=== PATIENT | male | born 1950 | race Caucasian/White ===

== ENCOUNTER → 2016-12-27 | Outpatient (CLI) | payer MEDICAID | END | disposition home or self-care (01) | LOC: LABWHC1 13:03 | PROVIDERS: ATTEND Internal Medicine Endocrinology, Diabetes & Metabolism | DX: E03.9 Hypothyroidism, unspecified (principal) | CPT/HCPCS: 36415; 84439; 84443 ==

== ENCOUNTER → 2017-02-13 | Outpatient (CLI) | payer MEDICAID ==
--- NOTE | 2017-02-13 22:01 | PN ---
DATE OF SERVICE: 02/13/2017 A 56-year-old gentleman who has been followed in the sleep center for treatment of obstructive sleep apnea/hypopnea syndrome. Patient recently received his new CPAP unit and he brought his CPAP unit ( ). He is able to use equipment every night for the whole night without any problems. He feels he sleeps well and he feels well during the day. [place] Sleepiness Scale is 6. I checked his CPAP unit. CPAP pressure is 12 ( ) automatic regimen. Patient using equipment 100% of the time for more than 4 hours. A leak is 4 L/min, which is good range. Apnea-hypopnea index reading from the machine for last month is 2.7, for last night is 1.1. Subsequently, no significant respiratory abnormalities with CPAP. MEDICATIONS: 1. Zetia. 2. Synthroid. 3. Metoprolol. 4. Altace. 5. Xarelto. 6. Lasix. PHYSICAL EXAMINATION: GENERAL: A pleasant patient without any distress. VITAL SIGNS: BP 112/75, HR 87, RR 16. Weight 273.4. Possibly during the previous visit, the patient's weight was done wt more clothes than today. Otherwise, possibly the patient increased his weight 8 pounds. Temperature 97.7, oxygen saturation at room air 95%. HEENT: PERRLA, EOMI. Evaluation of oropharynx showed tongue protrudes midline, low position of soft palate. Neck: Supple. No JVD. Thyroid is not palpable. LUNGS: Clear to percussion and to auscultation. Good air exchange. No wheezing or rhonchi. HEART: S1, S2 regular. No murmurs, gallops, or rubs. ABDOMEN: Obese, soft and nontender. Bowel sounds are present. No organomegaly appreciated. EXTREMITIES: No clubbing or cyanosis. Minimal swelling of the ankles. CELL ATTENDANT HELPER: Awake, alert, and oriented x3. Cranial nerves 2 to 7 intact. There is no fasciculation or atrophy noted. No focal deficits observed. IMPRESSION: 1. Obstructive sleep apnea/hypopnea syndrome on full control with CPAP at 12 cm of water. Patient demonstrated 100% compliance with treatment and is benefiting from treatment. 2. Obesity. 3. History of atrial fibrillation. 4. Swelling of the legs. 5. Hypothyroidism. 6. Hyperlipidemia. 7. Hypertension. 8. History of biliary cirrhosis. PLAN: 1. Continue treatment with CPAP every night for the whole night. 2. Losing weight. 3. Sleep hygiene with regular time in bed for at least 8 hours. 4. No driving if feeling any sleepiness. 5. Prescription for all necessary CPAP supplies, including mask, tube, filters. Thank you very much for allowing me to participate in the management your patient. Sincerely, Chirag Fuentes MD, PhD, FAASM. Diplomat of [place] [employer], Sleep Medicine Board by [place] [employer] [place] [employer] Research Coordinator of [facility] [place]
== END | disposition home or self-care (01) ==
LOC: SLEEP 14:26
PROVIDERS: ATTEND Internal Medicine
DX: G47.33 Obstructive sleep apnea (adult) (pediatric) (principal); E66.9 Obesity, unspecified; E03.9 Hypothyroidism, unspecified; I48.91 Unspecified atrial fibrillation; I10 Essential (primary) hypertension; E78.5 Hyperlipidemia, unspecified; Z99.89 Dependence on other enabling machines and devices; Z79.899 Other long term (current) drug therapy

== ENCOUNTER → 2017-06-18 | Outpatient (CLI) | payer MEDICAID ==
[2017-06-18 14:03] LABS: ALT 60 U/L (21-72); AST 37 U/L (17-59); Alkaline Phosphatase 63 U/L (38-126); Anion Gap 8 mmol/L; Blood Urea Nitrogen 22 mg/dL (9-20); Calcium 8.9 mg/dL (8.4-10.2); Carbon Dioxide 22 mmol/L (22-30); Chloride 109 mmol/L (98-107); Cholesterol 159 mg/dL (<200); Glucose 89 mg/dL (74-99); HDL Cholesterol 39 mg/dL (40-60); Non-African American GFR(MDRD) >60 (>60 ml/min/1.73 sqM); Potassium 4.3 mmol/L (3.5-5.1); Sodium 139 mmol/L (137-145); Total Bilirubin 1.2 mg/dL (0.2-1.3); Total Protein 7.1 g/dL (6.3-8.2)
== END | disposition home or self-care (01) ==
LOC: LABWHC1 13:13
PROVIDERS: ATTEND Internal Medicine Endocrinology, Diabetes & Metabolism
DX: E78.00 Pure hypercholesterolemia, unspecified (principal); E03.9 Hypothyroidism, unspecified; E55.9 Vitamin D deficiency, unspecified; I10 Essential (primary) hypertension
CPT/HCPCS: 36415; 80053; 80061; 82306; 84439; 84443

== ENCOUNTER → 2017-06-26 | Outpatient (CLI) | payer MEDICAID | END | disposition home or self-care (01) | LOC: LABWHC1 12:09 | PROVIDERS: ATTEND Internal Medicine Endocrinology, Diabetes & Metabolism | DX: R61 Generalized hyperhidrosis (principal) | CPT/HCPCS: 36415; 84402; 84403 ==

== ENCOUNTER → 2017-07-26 | Outpatient (CLI) | payer MEDICAID ==
--- NOTE | 2017-07-26 11:28 | ECHOF ---
Referral Reason:I48.91 atrial fibrillation MEASUREMENTS -------- HEIGHT: 170.2 cm WEIGHT: 120.2 kg BP: 125/75 RVIDd: 3.5 cm (< 3.3) IVSd: 1.2 cm (0.6 - 1.1) LVIDd: 4.7 cm (3.9 - 5.3) LVPWd: 1.3 cm (0.6 - 1.1) EDV(Teich): 101 ml IVSs: 1.4 cm LVIDs: 3.9 cm LVPWs: 2.0 cm %IVS Thck: 25 % ESV(Teich): 66 ml EF(Teich): 34 % %FS: 16 % SV(Teich): 34 ml LA Diam: 4.5 cm (2.7 - 3.8) RA Diam: 3.3 cm LALs A4C: 6.5 cm LAAs A4C: 25.0 cm LAESV A-L A4C: 81 ml LAESV MOD A4C: 76 ml LALs A2C: 6.1 cm LAAs A2C: 19.5 cm LAESV A-L A2C: 53 ml LAESV MOD A2C: 53 ml LAESV(A-L): 68 ml LAESV Index (A-L): 29.61 ml/m Ao Diam: 3.3 cm (2.0 - 3.7) AV Cusp: 2.0 cm (1.5 - 2.6) MV EXCURSION: 28.395 mm (> 18.000) MV EF SLOPE: 170 mm/s (70 - 150) EPSS: 0.6 cm MV DecT: 171 ms MV PHT: 33 ms MVA By PHT: 6.6 cm AV Vmax: 0.75 m/s AV maxP.23 mmHg TR Vmax: 2.18 m/s TR maxP.02 mmHg RAP: 5.00 mmHg RVSP: 24.02 mmHg FINDINGS -------- Atrial fibrillation. This was a technically adequate study. The left ventricular size is normal. There is mild concentric left ventricular hypertrophy. Overall left ventricular systolic function is normal with, an EF between 55 - 60 %. The right ventricle is mildly enlarged. LA is midly dilated 29-33ml/m2. The right atrium is normal in size. The aortic valve is trileaflet and appears structurally normal. Mild mitral regurgitation is present. Mild tricuspid regurgitation present. Right ventricular systolic pressure is normal at < 35 mmHg. The aortic root size is normal. Normal inferior vena cava with normal inspiratory collapse consistent with estimated right atrial pressure of 5 mmHg. The pericardium is normal. CONCLUSIONS -------- 1. Atrial fibrillation. 2. Mild mitral regurgitation is present. 3. Mild tricuspid regurgitation present. 4. Right ventricular systolic pressure is normal at < 35 mmHg. 5. The aortic root size is normal. 6. Normal inferior vena cava with normal inspiratory collapse consistent with estimated right atrial pressure of 5 mmHg. 7. The pericardium is normal. 8. This was a technically adequate study. 9. The left ventricular size is normal. 10. There is mild concentric left ventricular hypertrophy. 11. Overall left ventricular systolic function is normal with, an EF between 55 - 60 %. 12. The right ventricle is mildly enlarged. 13. LA is midly dilated 29-33ml/m2. 14. The right atrium is normal in size. 15. The aortic valve is trileaflet and appears structurally normal. PYROTECHNIST: Stacy Reed RDCS
== END | disposition home or self-care (01) ==
LOC: RADECHMAIN 08:26
PROVIDERS: ATTEND Internal Medicine Interventional Cardiology
DX: I48.91 Unspecified atrial fibrillation (principal); I08.1 Rheumatic disorders of both mitral and tricuspid valves
CPT/HCPCS: 93306

== ENCOUNTER → 2017-12-27 | Outpatient (CLI) | payer MEDICAID ==
[2017-12-27 14:14] LABS: Basophils # (A) 0.1 k/uL (0-0.2); Basophils % (A) 1 %; Eosinophils # (A) 0.2 k/uL (0-0.7); Eosinophils % (A) 3 %; HCT 49.1 % (39.0-53.0); HGB 16.2 gm/dL (13.0-17.5); Lymphocytes # (A) 1.8 k/uL (1.0-4.8); Lymphocytes % (A) 30 %; MCH 33.2 pg (25.0-35.0); MCHC 32.9 g/dL (31.0-37.0); MCV 100.9 fL (80.0-100.0); Macrocytosis Slight; Mean Platelet Volume 7.1; Monocytes # (A) 0.4 k/uL (0-1.0); Monocytes % (A) 7 %; Neutrophils # (A) 3.5 k/uL (1.3-7.7); Neutrophils % (A) 57 %; Platelet Count 226 k/uL (150-450); RBC 4.87 m/uL (4.30-5.90); RDW 14.2 % (11.5-15.5); WBC 6.1 k/uL (3.8-10.6)
[2017-12-27 14:24] LABS: ALT 49 U/L (21-72); AST 37 U/L (17-59); Albumin 4.2 g/dL (3.5-5.0); Alkaline Phosphatase 60 U/L (38-126); Anion Gap 8 mmol/L; Blood Urea Nitrogen 21 mg/dL (9-20); Calcium 9.3 mg/dL (8.4-10.2); Carbon Dioxide 25 mmol/L (22-30); Chloride 107 mmol/L (98-107); Cholesterol 173 mg/dL (<200); Glucose 90 mg/dL (74-99); HDL Cholesterol 36 mg/dL (40-60); LDL Cholesterol,Calculated 114 mg/dL (0-99); Potassium 4.4 mmol/L (3.5-5.1); Sodium 140 mmol/L (137-145); Total Bilirubin 1.2 mg/dL (0.2-1.3); Total Protein 7.3 g/dL (6.3-8.2); Triglycerides 114 mg/dL (<150)
[2017-12-27 14:39] LABS: T4, Free (Free Thyroxine) 1.43 ng/dL (0.78-2.19)
[2017-12-28 03:53] LABS: Hemoglobin A1C 5.5 % (4.0-6.0)
== END | disposition home or self-care (01) ==
LOC: LABWHC1 13:35
PROVIDERS: ATTEND Internal Medicine Endocrinology, Diabetes & Metabolism
DX: E03.9 Hypothyroidism, unspecified (principal); E55.9 Vitamin D deficiency, unspecified; I10 Essential (primary) hypertension
CPT/HCPCS: 36415; 80053; 80061; 82306; 83036; 84439; 84443; 85025

== ENCOUNTER → 2018-02-03 | Outpatient (CLI) | payer MEDICAID ==
[2018-02-03 12:41] LABS: Basophils % (A) 1 %; Eosinophils # (A) 0.2 k/uL (0-0.7); Eosinophils % (A) 2 %; HCT 49.5 % (39.0-53.0); HGB 16.8 gm/dL (13.0-17.5); Lymphocytes # (A) 1.5 k/uL (1.0-4.8); Lymphocytes % (A) 25 %; MCH 33.6 pg (25.0-35.0); MCHC 33.9 g/dL (31.0-37.0); Mean Platelet Volume 7.1; Monocytes # (A) 0.4 k/uL (0-1.0); Monocytes % (A) 7 %; Neutrophils # (A) 3.8 k/uL (1.3-7.7); Neutrophils % (A) 63 %; Platelet Count 253 k/uL (150-450); RBC 4.99 m/uL (4.30-5.90); RDW 12.7 % (11.5-15.5)
== END ==
LOC: LABWHC1 12:16
PROVIDERS: ATTEND Internal Medicine Endocrinology, Diabetes & Metabolism
DX: E03.9 Hypothyroidism, unspecified (principal)
CPT/HCPCS: 36415; 82607; 85025

== ENCOUNTER → 2018-02-13 | Outpatient (CLI) | payer MEDICAID ==
--- NOTE | 2018-02-13 19:52 | PN ---
PROGRESS NOTE DATE OF SERVICE: 02/13/2018 This patient is a 67-year-old gentleman who has been followed in the sleep center for obstructive sleep apnea-hypopnea syndrome. The patient continues to use his CPAP equipment every night for the whole night without any significant problems related to mask, tube or humidification. I checked the patient's CPAP unit. CPAP pressure is 12 cm of water. Usage is 100% of nights for more than 4 hours. Average usage is 6.7 hours. Leak is only 1 L/minute, which is perfect. Apnea-hypopnea index for the last month is 3.1, which is within normal range. I checked it also for the whole year, which is 3.4. [place] Sleepiness Scale is 4, which is totally normal. MEDICATIONS: Patient continues to take the same medications: 1. Zetia. 2. Synthroid. 3. Metoprolol. 4. Altace. 5. Xarelto. 6. Lasix. PHYSICAL EXAMINATION: GENERAL A pleasant gentleman without distress. VITAL SIGNS: BP 110/79, HR 88, RR 16, height 5 feet 6 inches, weight 270, BMI 51.6, temperature 96.8, oxygen saturation at room air 95%. HEENT: PERRLA, EOMI. Evaluation of oropharynx showed tongue protrudes midline; extremely low position of soft palate. NECK: Supple. No JVD. Thyroid is not palpable. LUNGS: Clear to percussion and to auscultation. Good air exchange. No wheezing or rhonchi. HEART: S1, S2 regular. No murmurs, gallops or rubs. ABDOMEN: Obese. EXTREMITIES : No clubbing or cyanosis. ROLLED OATS MILL OPERATOR: Awake, alert, and oriented X3. Cranial nerves 2 to 7 intact. There is no fasciculation or atrophy. noted. No focal deficits observed. IMPRESSION: 1. Obstructive sleep apnea-hypopnea syndrome. Patient has demonstrated 100% compliance with treatment, benefitting from treatment. 2. Obesity. Patient has lost about 3 pounds since previous visit. 3. History of atrial fibrillation. 4. Hypothyroidism. 5. Hyperlipidemia. 6. Hypertension. 7. History of biliary cirrhosis. PLAN: 1. Patient will continue to use CPAP equipment every night for the whole night. 2. Continue losing weight. 3. Sleep hygiene with regular time in bed for at least 7-1/2 to 8 hours. 4. No driving if feeling any sleepiness. 5. Prescription for all necessary CPAP supplies, including mask, tube, filters. At present the patient is using a nasal pillow mask AirFit P10. We will maintain him on treatment with this mask. Thank you very much for allowing me to participate in the management of your patient. Sincerely, Chirag Fuentes MD, PhD, FAASM Diplomat of [place] [employer] Board of Internal Medicine Bottle Filler of [facility] [place] MMODL / BIBIN: [id number] /
== END | disposition home or self-care (01) ==
LOC: SLEEP 15:44
PROVIDERS: ATTEND Internal Medicine
DX: G47.33 Obstructive sleep apnea (adult) (pediatric) (principal); E66.9 Obesity, unspecified; E03.9 Hypothyroidism, unspecified; E78.5 Hyperlipidemia, unspecified; I10 Essential (primary) hypertension; Z87.19 Personal history of other diseases of the digestive system; Z86.79 Personal history of other diseases of the circulatory system; Z99.89 Dependence on other enabling machines and devices; Z79.01 Long term (current) use of anticoagulants; Z79.899 Other long term (current) drug therapy; Z68.43 Body mass index [BMI] 50.0-59.9, adult

== ENCOUNTER → 2018-06-26 | Outpatient (CLI) | payer MEDICAID ==
[2018-06-26 17:24] LABS: Albumin 4.2 g/dL (3.5-5.0); Calcium 9.3 mg/dL (8.4-10.2); Potassium 4.6 mmol/L (3.5-5.1); Total Bilirubin 1.2 mg/dL (0.2-1.3); Total Protein 7.4 g/dL (6.3-8.2)
[2018-06-26 17:40] LABS: T4, Free (Free Thyroxine) 1.41 ng/dL (0.78-2.19)
== END | disposition home or self-care (01) ==
LOC: LABWHC1 16:18
PROVIDERS: ATTEND Internal Medicine Endocrinology, Diabetes & Metabolism
DX: E03.9 Hypothyroidism, unspecified (principal); I10 Essential (primary) hypertension; E55.9 Vitamin D deficiency, unspecified
CPT/HCPCS: 36415; 80053; 80061; 82306; 84439; 84443

== ENCOUNTER → 2018-07-16 | Outpatient (CLI) | payer MEDICAID ==
[2018-07-16 13:26] LABS: Calcium 8.9 mg/dL (8.4-10.2); Potassium 4.5 mmol/L (3.5-5.1)
== END | disposition home or self-care (01) ==
LOC: LABWHC1 12:04
PROVIDERS: ATTEND Internal Medicine Endocrinology, Diabetes & Metabolism
DX: E03.9 Hypothyroidism, unspecified (principal)
CPT/HCPCS: 36415; 80048

== ENCOUNTER → 2019-01-06 | Outpatient (CLI) | payer MEDICAID ==
[2019-01-06 18:47] LABS: Albumin/Globulin Ratio 1.33 (1.60-3.17); Anion Gap 4.9 mmol/L (4.00-12.00); Calcium 8.9 mg/dL (8.7-10.3); Carbon Dioxide 27.1 mmol/L (21.6-31.8); LDL Cholesterol,Calculated 106.6 mg/dL (0.0-131.0); Potassium 4.3 mmol/L (3.5-5.5); VLDL Calculation 21.4 mg/dL (5.00-40.00)
[2019-01-06 18:55] LABS: T4, Free (Free Thyroxine) 1.2 ng/dL (0.80-1.80)
== END | disposition home or self-care (01) ==
LOC: LABWHC1 11:55
PROVIDERS: ATTEND Internal Medicine Endocrinology, Diabetes & Metabolism
DX: E03.9 Hypothyroidism, unspecified (principal); E55.9 Vitamin D deficiency, unspecified; I10 Essential (primary) hypertension
CPT/HCPCS: 36415; 80053; 80061; 82306; 84439; 84443

== ENCOUNTER → 2019-02-05 | Outpatient (CLI) | payer MEDICAID ==
--- NOTE | 2019-02-05 16:33 | PN ---
PROGRESS NOTE DATE OF SERVICE: 02/05/2019 This 68-year-old gentleman has been followed in the sleep center for treatment of obstructive sleep apnea-hypopnea syndrome. The patient successfully continues to use his CPAP equipment. No snoring with the machine. He is using the machine every night. [place] Sleepiness Scale is 5, which is normal. I checked his CPAP unit. CPAP pressure is 12 cm of water. Usage is every night. Average usage is 6.2 hours. Leak is 19 L/minute, which is borderline. Apnea-hypopnea index is in the range of 5, which is normal. MEDICATIONS: 1. Zetia. 2. Synthroid. 3. Metoprolol. 4. Altace. 5. Xarelto. 6. Lasix. PHYSICAL EXAMINATION: GENERAL: A pleasant patient in no distress. VITAL SIGNS: BP 111/84, HR 87, RR 16, height 5 feet 5 inches, weight 280.2 pounds. Weight has increased by about 10 pounds compared to the previous visit. Temperature 97.8, oxygen saturation at room air 96%. HEENT: PERRLA, EOMI. Evaluation of oropharynx showed tongue protrudes midline. Extremely low position of soft palate. NECK: Supple. No JVD. Thyroid is not palpable. LUNGS: Clear to percussion and to auscultation. Good air exchange. No wheezing or rhonchi. HEART: S1, S2 regular. No murmurs, gallops or rubs. ABDOMEN: Obese. EXTREMITIES: No clubbing or cyanosis. ADVANCED MANUFACTURING ASSOCIATE: Awake, alert, and oriented X3. Cranial nerves 2 to 7 intact. There is no fasciculation or atrophy. noted. No focal deficits observed. IMPRESSION: 1. Obstructive sleep apnea-hypopnea syndrome. The patient demonstrated 100% compliance with treatment, benefitting from treatment. 2. Obesity. 3. History of atrial fibrillation. 4. Hypothyroidism. 5. Hypertension. 6. Hyperlipidemia. 7. History of biliary cirrhosis. PLAN: 1. We fitted the patient with a DreamWear [id number] full-face mask. Patient likes the mask. There is no significant leak from this type of mask. I will write a prescription for this mask. 2. Prescription for all necessary CPAP supplies, including heated tube and filters. 3. Losing weight. 4. Sleep hygiene with regular time in bed for 7-1/2 to 8 hours. 5. Precautions related to driving. No driving if feeling any sleepiness. 6. Follow-up visit in one year, or earlier if the patient has any problems. Thank you very much for allowing me to participate in the management of your patient. Sincerely, Chirag Fuentes MD, PhD, FAASM Diplomat of [place] [employer] Specialties [place] Board of Internal Medicine Oracle Business Intelligence Developer of [facility] [place] MMODL / BIBIN: [id number] /
== END ==
LOC: SLEEP 15:19
PROVIDERS: ATTEND Internal Medicine
DX: G47.33 Obstructive sleep apnea (adult) (pediatric) (principal); E66.9 Obesity, unspecified; E03.9 Hypothyroidism, unspecified; E78.5 Hyperlipidemia, unspecified; I10 Essential (primary) hypertension; I48.91 Unspecified atrial fibrillation; K74.5 Biliary cirrhosis, unspecified; Z99.89 Dependence on other enabling machines and devices; Z79.899 Other long term (current) drug therapy; Z79.01 Long term (current) use of anticoagulants

== ENCOUNTER → 2019-08-26 | Outpatient (CLI) | payer MEDICAID ==
[2019-08-26 17:28] LABS: Albumin/Globulin Ratio 1.38 (1.60-3.17); Anion Gap 13.9 mmol/L (4.00-12.00); BUN/Creat Ratio 15.71 Ratio (12.00-20.00); Carbon Dioxide 20.1 mmol/L (21.6-31.8); Chol/HDL Ratio 4.09; Globulin 2.9 g/dL (1.6-3.3); LDL Cholesterol,Calculated 110.8 mg/dL (0.0-131.0); Total Bilirubin 1.3 mg/dL (0.2-1.2); Total Protein 6.9 g/dL (6.2-8.2); VLDL Calculation 22.2 mg/dL (5.00-40.00)
[2019-08-26 17:36] LABS: T4, Free (Free Thyroxine) 1.4 ng/dL (0.80-1.80)
[2019-08-26 19:52] LABS: Hemoglobin A1C 5.7 % (4.0-6.0)
== END | disposition home or self-care (01) ==
LOC: LABWHC1 10:08
PROVIDERS: ATTEND Internal Medicine Endocrinology, Diabetes & Metabolism
DX: I10 Essential (primary) hypertension (principal); E55.9 Vitamin D deficiency, unspecified; E03.9 Hypothyroidism, unspecified
CPT/HCPCS: 36415; 80053; 80061; 82306; 83036; 84439; 84443

== ENCOUNTER → 2019-11-05 | Outpatient (CLI) | payer MEDICAID | END | disposition home or self-care (01) | LOC: LABWHC1 11:23 | PROVIDERS: ATTEND Urology | DX: N40.0 Benign prostatic hyperplasia without lower urinary tract symptoms (principal) | CPT/HCPCS: 36415; 84153 ==

== ENCOUNTER → 2020-02-04 | Outpatient (CLI) | payer MEDICAID ==
--- NOTE | 2020-02-04 20:34 | PN ---
PROGRESS NOTE DATE OF SERVICE: 02/04/2020 69-year-old gentleman who has been followed for treatment of obstructive sleep apnea- hypopnea syndrome. The patient continues to use his CPAP equipment 100% of the nights. He sleeps well with the machine. No excessive daytime sleepiness. [place] Sleepiness Scale is in normal range of 3. I checked CPAP unit, CPAP pressure of 12 cm of water. Usage is 30 out of 30 nights for more than 4 hours. Average usage is 7.3 hours per night, which is normal sleep time. Pressure is 12 cm of water. Leak is 50 L/minutes which is acceptable. Apnea-hypopnea index 3.4 in normal range. MEDICATIONS: Synthroid, metoprolol, Zetia, Altace, Xarelto, Lasix. PHYSICAL EXAM: Patient in no distress. BP 109/71, HR about 101, RR 15, height 5 feet 6-3/4 inches, weight 283.4 pounds, temperature 98.0, oxygen saturation at room air 95%. Oropharynx: Extremely low position of soft palate. Mallampati 4. NECK: Supple, no JVD. Thyroid is not palpable. LUNGS: Clear to percussion and to auscultation. Good air exchange. No wheezing or rhonchi. HEART: S1, S2 irregularly irregular. No murmurs, gallops, or rubs. ABDOMEN: Obese. Soft and nontender. Bowel sounds are present. No organomegaly appreciated. EXTREMITIES: No clubbing or cyanosis. DEVELOPMENT EXPERT: Awake, alert, and oriented X3. Cranial nerves 2 to 7 intact. There is no fasciculation or atrophy. noted. No focal deficits observed. IMPRESSION: 1. Obstructive sleep apnea-hypopnea syndrome. Patient demonstrated 100% compliance with treatment, benefitting from treatment. 2. Atrial fibrillation. 3. Obesity. 4. Hypothyroidism. 5. Hypertension. 6. Hyperlipidemia. 7. History of biliary cirrhosis. PLAN: 1. Patient will continue to use CPAP equipment every night for the whole night. 2. Losing weight. 3. Sleep hygiene with regular time in bed for at least 7-1/2 to 8 hours. 4. No driving if feeling sleepiness. 5. Prescription for all necessary CPAP supplies including mask, tube, filters. Thank you very much for allowing me to participate in management of your patient. Sincerely, Chirag Fuentes MD, PhD, FAASM Diplomat of [place] [employer] Specialties [employer] Board of Internal Medicine Staffing Consultant of [facility] [place] MMODL / BIBIN: [id number] /
== END | disposition home or self-care (01) ==
LOC: SLEEP 16:29
PROVIDERS: ATTEND Internal Medicine
DX: G47.33 Obstructive sleep apnea (adult) (pediatric) (principal); I48.91 Unspecified atrial fibrillation; E66.9 Obesity, unspecified; E03.9 Hypothyroidism, unspecified; I10 Essential (primary) hypertension; E78.5 Hyperlipidemia, unspecified; Z87.19 Personal history of other diseases of the digestive system; Z99.89 Dependence on other enabling machines and devices; Z79.890 Hormone replacement therapy; Z79.899 Other long term (current) drug therapy; Z79.01 Long term (current) use of anticoagulants

== ENCOUNTER → 2020-02-29 | Outpatient (CLI) | payer MEDICAID ==
[2020-02-29 15:11] LABS: HCT 48.5 % (39.0-53.0); HGB 16.4 gm/dL (13.0-17.5); MCH 34.3 pg (25.0-35.0); MCHC 33.8 g/dL (31.0-37.0); MCV 101.3 fL (80.0-100.0); Mean Platelet Volume 7.3; Platelet Count 218 k/uL (150-450); RBC 4.78 m/uL (4.30-5.90); RDW 12.9 % (11.5-15.5); WBC 6.6 k/uL (3.8-10.6)
[2020-02-29 22:52] LABS: African American GFR (CKD) 70.6 (60.0-200.0); Albumin 4.1 g/dL (3.80-4.90); Albumin/Globulin Ratio 1.37 (1.60-3.17); Anion Gap 5.5 mmol/L (4.00-12.00); BUN/Creat Ratio 18.33 Ratio (12.00-20.00); Calcium 9.2 mg/dL (8.7-10.3); Carbon Dioxide 25.5 mmol/L (21.6-31.8); Chol/HDL Ratio 4.14; LDL Cholesterol,Calculated 112.6 mg/dL (0.0-131.0); Non-African American GFR(CKD) 60.9 (60.0-200.0); Total Bilirubin 1.2 mg/dL (0.3-1.2); Total Protein 7.1 g/dL (6.2-8.2); VLDL Calculation 25.4 mg/dL (5.00-40.00)
[2020-02-29 23:03] LABS: T4, Free (Free Thyroxine) 1.5 ng/dL (0.80-1.80)
== END | disposition home or self-care (01) ==
LOC: LABMAIN 14:37
PROVIDERS: ATTEND Internal Medicine
DX: E03.9 Hypothyroidism, unspecified (principal); E78.00 Pure hypercholesterolemia, unspecified; E55.9 Vitamin D deficiency, unspecified; K74.3 Primary biliary cirrhosis; D75.89 Other specified diseases of blood and blood-forming organs
CPT/HCPCS: 36415; 80053; 80061; 82306; 84439; 84443; 85027

== ENCOUNTER → 2020-08-31 | Outpatient (CLI) | payer MEDICAID ==
[2020-08-31 13:18] LABS: HCT 49.8 % (39.0-53.0); MCH 35.8 pg (25.0-35.0); MCHC 34.2 g/dL (31.0-37.0); MCV 104.8 fL (80.0-100.0); Macrocytosis Slight; Mean Platelet Volume 7.2; Platelet Count 223 k/uL (150-450); RBC 4.75 m/uL (4.30-5.90); RDW 12.8 % (11.5-15.5); WBC 7.1 k/uL (3.8-10.6)
[2020-08-31 13:21] LABS: Appearance,Urine Clear (Clear); Bilirubin,Urine Negative (Negative); Blood,Urine Negative (Negative); Color,Urine Yellow; Glucose,Urine (UA) Negative (Negative); Hyaline Casts,Urine 1 /lpf (0-2); Ketones,Urine Negative (Negative); Leukocyte Esterase,Urine Negative (Negative); Mucus,Urine Few /hpf; Nitrite,Urine Negative (Negative); Protein,Urine 1+ (Negative); RBC,Urine 1 /hpf (0-5); Specific Gravity,Urine 1.021 (1.001-1.035); Urobilinogen,Urine <2.0 mg/dL (<2.0); WBC,Urine 1 /hpf (0-5)
[2020-08-31 22:37] LABS: African American GFR (CKD) 70.6 (60.0-200.0); Albumin 3.8 g/dL (3.80-4.90); Albumin/Globulin Ratio 1.23 (1.60-3.17); Anion Gap 9.1 mmol/L (4.00-12.00); BUN/Creat Ratio 13.33 Ratio (12.00-20.00); Calcium 9.1 mg/dL (8.7-10.3); Carbon Dioxide 20.9 mmol/L (21.6-31.8); Chol/HDL Ratio 4.19; Globulin 3.1 g/dL (1.6-3.3); LDL Cholesterol,Calculated 113.6 mg/dL (0.0-131.0); Non-African American GFR(CKD) 60.9 (60.0-200.0); Potassium 4.4 mmol/L (3.5-5.5); Total Bilirubin 0.7 mg/dL (0.2-1.2); Total Protein 6.9 g/dL (6.2-8.2); VLDL Calculation 20.4 mg/dL (5.00-40.00)
[2020-08-31 22:45] LABS: Prostate Specific Antigen 0.7 ng/mL (0.0-6.5); T4, Free (Free Thyroxine) 1.2 ng/dL (0.80-1.80)
[2020-08-31 22:46] LABS: Hemoglobin A1C 6.1 % (4.0-6.0)
== END | disposition home or self-care (01) ==
LOC: LABWHC1 12:16
PROVIDERS: ATTEND Internal Medicine
DX: Z12.5 Encounter for screening for malignant neoplasm of prostate (principal); Z13.220 Encounter for screening for lipoid disorders; Z13.1 Encounter for screening for diabetes mellitus; G70.00 Myasthenia gravis without (acute) exacerbation
CPT/HCPCS: 36415; 80053; 80061; 81001; 83036; 84153; 84439; 84443; 85027

== ENCOUNTER → 2020-11-03 | Outpatient (CLI) | payer MEDICAID ==
--- NOTE | 2020-11-03 15:36 | XR ---
EXAMINATION TYPE: XR chest 2V DATE OF EXAM: 11/03/2020 COMPARISON: None INDICATION: Short of breath, Covid TECHNIQUE: Frontal and lateral views of the chest are obtained. FINDINGS: The heart size is normal. The pulmonary vasculature is normal. The lungs are clear. IMPRESSION: 1. No acute pulmonary process.
[2020-11-03 20:05] LABS: Creatine Kinase 218 U/L (35-257)
[2020-11-03 23:07] LABS: Protein, Total 6.9 g/dL (6.2-8.2)
[2020-11-04 14:28] LABS: Albumin 3.51 g/dL (3.80-4.90); Gamma Globulin 1.64 g/dL (0.70-1.50)
== END | disposition home or self-care (01) ==
LOC: LABWHC1 12:20
PROVIDERS: ATTEND Psychiatry & Neurology Neurology
DX: R06.02 Shortness of breath (principal); R91.8 Other nonspecific abnormal finding of lung field; M62.81 Muscle weakness (generalized); G62.9 Polyneuropathy, unspecified
CPT/HCPCS: 36415; 71046; 82550; 82607; 82747; 84165; 85652; 86038; 86618

== ENCOUNTER → 2020-12-02 | Outpatient (CLI) | payer MEDICARE | END | disposition home or self-care (01) | LOC: LABWHC1 11:54 | PROVIDERS: ATTEND Psychiatry & Neurology Neurology | DX: G70.01 Myasthenia gravis with (acute) exacerbation (principal); R13.19 Other dysphagia; R06.01 Orthopnea | CPT/HCPCS: 36415; 86334 ==

== ENCOUNTER → 2021-02-01 | Outpatient (CLI) | payer MEDICARE ==
--- NOTE | 2021-02-01 21:09 | SFUN ---
SLEEP CENTER FOLLOW UP NOTE DATE OF SERVICE: 02/01/2021 This 70-year-old gentleman has been followed in Sleep Center for treatment of obstructive sleep apnea-hypopnea syndrome. The patient continues to use his CPAP equipment every night for the whole night without significant problems related to mask fitting, pressure or humidification. [place] Sleepiness Scale today is 5. I checked the patient's CPAP unit. CPAP pressure is 12 cm of water. Usage is 30/30 nights for more than 4 hours. Average usage is 7.2 hours per night. Leak is 28 L/minute. Apnea-hypopnea index 2.3. MEDICATIONS: 1. Synthroid 0.137 mg once a day. 2. Zetia 10 mg once a day. 3. Metoprolol 100 mg 3 times a day. 4. Altace 5 mg once a day. 5. Vitamin D supplement. 6. Xarelto 20 mg once a day. 7. Lasix 40 mg once a day. 8. bromide 6 tablets daily. PHYSICAL EXAMINATION: GENERAL: A pleasant patient in no distress. VITAL SIGNS: BP 93/62, HR 85, RR 16, height 5 feet 6-1/2 inches, weight 265.2 pounds, BMI 42.1. The patient lost about 20 pounds since last visit. Temperature 97.4, oxygen saturation at room air 96%. HEENT: PERRLA, EOMI. Evaluation of oropharynx showed tongue protrudes midline. Extremely low position of soft palate. Mallampati IV. NECK: Supple. No JVD. Thyroid is not palpable. LUNGS: Clear to percussion and to auscultation. Good air exchange. No wheezing or rhonchi. HEART: S1, S2 irregular. ABDOMEN: Obese. EXTREMITIES: No clubbing or cyanosis. HUMAN RESOURCE CONSULTANT: Awake, alert, and oriented X3. Cranial nerves 2 to 7 intact. There is no fasciculation or atrophy. noted. No focal deficits observed. IMPRESSION: 1. Obstructive sleep apnea-hypopnea syndrome. Patient demonstrated 100% compliance with treatment, benefitting from treatment. 2. Obesity. Patient lost about 20 pounds since previous visit. 3. History of atrial fibrillation. 4. Hypothyroidism. 5. Hypertension. 6. History of . 7. Hyperlipidemia. 8. History of biliary cirrhosis. PLAN: 1. Patient will continue to use PAP equipment every night for the whole night. 2. Sleep hygiene with regular time in bed for at least 7-1/2 to 8 hours. 3. Precautions related to driving. No driving if feeling sleepiness. 4. I will maintain all necessary prescription for PAP supplies including mask, tube, filters. 5. Watching weight. 6. No driving if feeling sleepiness. 7. Follow-up visit in 6 months or earlier if patient has any problems. Thank you very much for allowing me to participate in the management of your patient. Sincerely, Chirag Fuentes MD, PhD, FAASM Diplomat of [place] [employer] Specialties [place] [employer] Internal Medicine Lead Painter of [facility] [place] MMODL / IJN: [id number] /
== END | disposition home or self-care (01) ==
LOC: SLEEP 16:08
PROVIDERS: ATTEND Internal Medicine
DX: G47.33 Obstructive sleep apnea (adult) (pediatric) (principal); E66.9 Obesity, unspecified; E03.9 Hypothyroidism, unspecified; I10 Essential (primary) hypertension; E78.5 Hyperlipidemia, unspecified; Z99.89 Dependence on other enabling machines and devices; Z79.890 Hormone replacement therapy; Z79.899 Other long term (current) drug therapy; Z87.19 Personal history of other diseases of the digestive system; Z86.79 Personal history of other diseases of the circulatory system

== ENCOUNTER → 2021-03-02 | Outpatient (CLI) | payer MEDICARE ==
[2021-03-02 21:39] LABS: Hemoglobin A1C 5.6 % (4.0-6.0)
[2021-03-02 22:15] LABS: Chol/HDL Ratio 4.13; LDL Cholesterol,Calculated 99.2 mg/dL (0.0-131.0); VLDL Calculation 19.8 mg/dL (5.00-40.00)
[2021-03-02 22:24] LABS: T4, Free (Free Thyroxine) 1.2 ng/dL (0.80-1.80)
== END | disposition home or self-care (01) ==
LOC: LABWHC1 12:26
PROVIDERS: ATTEND Internal Medicine
DX: E78.00 Pure hypercholesterolemia, unspecified (principal); E03.9 Hypothyroidism, unspecified; E55.9 Vitamin D deficiency, unspecified; R73.03 Prediabetes
CPT/HCPCS: 36415; 80061; 82306; 83036; 84439; 84443

== ENCOUNTER → 2021-08-22 | Outpatient (CLI) | payer MEDICARE ==
[2021-08-22 23:27] LABS: HCT 45.2 % (39.6-50.0); HGB 15.2 g/dL (13.0-17.0); MCH 34.3 pg (27.0-32.0); MCHC 33.6 g/dL (32.0-37.0); Mean Platelet Volume 10.6 fL (9.5-12.2); Platelet Count 258 X 10*3/uL (140-440); RBC 4.43 X 10*6/uL (4.40-5.60); RDW 12.5 % (11.5-14.5); WBC 8.59 X 10*3/uL (4.50-10.00)
[2021-08-23 02:25] LABS: Hemoglobin A1C 5.7 % (4.0-6.0)
== END | disposition home or self-care (01) ==
LOC: LABWHC1 15:25
PROVIDERS: ATTEND Internal Medicine
DX: I10 Essential (primary) hypertension (principal); E78.00 Pure hypercholesterolemia, unspecified; E03.9 Hypothyroidism, unspecified; E55.9 Vitamin D deficiency, unspecified; D75.89 Other specified diseases of blood and blood-forming organs; R25.2 Cramp and spasm; R73.03 Prediabetes
CPT/HCPCS: 36415; 80053; 80061; 82306; 83036; 83735; 84439; 84443; 85027

== ENCOUNTER → 2021-08-31 | Outpatient (CLI) | payer MEDICARE ==
--- NOTE | 2021-08-31 19:29 | SFUN ---
SLEEP CENTER FOLLOW UP NOTE DATE OF SERVICE: 08/31/2021 This 70-year-old gentleman has been followed in Sleep Center for treatment of obstructive sleep apnea-hypopnea syndrome. The patient continues to use his CPAP equipment every night for the whole night. He is getting his CPAP supplies on time. [place] Sleepiness Scale today is 5, which is totally normal. I checked his CPAP unit. Pressure is 12 cm of water. Usage is 30/30 nights for more than 4 hours, average 6.6 hours per night. Leak is slightly high at 40 L/minute, but it does not create any problems for the patient. Apnea-hypopnea index is 3.0, which is perfect. He is also using a chinstrap. MEDICATIONS: 1. Synthroid 0.137 mg once a day. 2. Zetia 10 mg once a day. 3. Metoprolol 100 mg 3 times a day. 4. Altace 5 mg once a day. 5. Xarelto 20 mg once a day. 6. Lasix 40 mg once a day. 7. Pyridostigmine 180 mg 3 times daily. PHYSICAL EXAMINATION: GENERAL: Pleasant patient in no distress. VITAL SIGNS: BP 97/64, HR 82, RR 15, height 5 feet 5 inches, weight 261.8, temperature 97.3, oxygen saturation at room air 98%. Body mass index 43.4. HEENT: PERRLA, EOMI, evaluation of oropharynx showed tongue protrudes midline. Extremely low position of soft palate; Mallampati IV. NECK: Supple, no JVD. Thyroid is not palpable. LUNGS: Clear to percussion and to auscultation. Good air exchange. No wheezing or rhonchi. HEART: S1, S2 irregular. ABDOMEN: Obese. EXTREMITIES: No clubbing or cyanosis. AUTO BUMPER STRAIGHTENER: Awake, alert, and oriented X3. Cranial nerves 2 to 7 intact. There is no fasciculation or atrophy. noted. No focal deficits observed. IMPRESSION: 1. Obstructive sleep apnea-hypopnea syndrome. Patient demonstrated 100% compliance with treatment, benefitting from treatment. Normal respiration on CPAP. 2. Obesity. The patient lost 4 pounds since his previous visit. 3. Arterial fibrillation. 4. Hypothyroidism. 5. Hypertension. 6. Myasthenia gravis. 7. Hyperlipidemia. 8. History of biliary cirrhosis. PLAN: 1. Patient will continue to use PAP equipment every night for the whole night. 2. Sleep hygiene with regular time in bed for at least 7-1/2 to 8 hours. 3. Precautions related to driving. No driving if feeling sleepiness. 4. I will maintain all necessary prescription for PAP supplies including mask, tube, filters. 5. Watching weight. 6. Follow-up visit in 6 months or earlier if patient has any problems. Thank you very much for allowing me to participate in the management of your patient. Sincerely, Chirag Fuentes MD, PhD, FAASM Diplomat of [place] [employer] Specialties Sleep Medicine Board of [place] [employer] of Internal Medicine Heat Treat Worker of [facility] [place] MMODL / BIBIN: [id number] /
== END ==
LOC: SLEEP 16:26
PROVIDERS: ATTEND Internal Medicine
DX: G47.33 Obstructive sleep apnea (adult) (pediatric) (principal); E66.9 Obesity, unspecified; I48.91 Unspecified atrial fibrillation; E03.9 Hypothyroidism, unspecified; I10 Essential (primary) hypertension; G70.00 Myasthenia gravis without (acute) exacerbation; E78.5 Hyperlipidemia, unspecified; Z99.89 Dependence on other enabling machines and devices; Z68.41 Body mass index [BMI] 40.0-44.9, adult; Z79.899 Other long term (current) drug therapy; Z87.19 Personal history of other diseases of the digestive system

== ENCOUNTER → 2021-11-13 | Outpatient (CLI) | payer MEDICARE | END | disposition home or self-care (01) | LOC: LABWHC1 14:00 | PROVIDERS: ATTEND Urology | DX: R97.20 Elevated prostate specific antigen [PSA] (principal) | CPT/HCPCS: 36415; 84153 ==

== ENCOUNTER → 2021-12-15 | Outpatient (CLI) | payer MEDICARE ==
--- NOTE | 2021-12-15 12:44 | XR ---
EXAMINATION TYPE: XR chest 2V DATE OF EXAM: 12/15/2021 COMPARISON: Chest x-ray November 03, 2020 HISTORY: Shortness of breath. TECHNIQUE: Frontal and lateral views of the chest are obtained. FINDINGS: There is no suspicious new focal air space opacity, pleural effusion, or pneumothorax seen . The cardiac silhouette size is stable and upper limits of normal. The osseous structures are int act. IMPRESSION: No acute cardiopulmonary process. No significant change from prior.
[2021-12-15 20:15] LABS: Basophils # (A) 0.02 X 10*3/uL (0.00-0.10); Basophils % (A) 0.1 %; Eosinophils # (A) 0 X 10*3/uL (0.04-0.35); Eosinophils % (A) 0 %; HCT 48.8 % (39.6-50.0); HGB 15.7 g/dL (13.0-17.0); Lymphocytes # (A) 1.61 X 10*3/uL (0.90-5.00); Lymphocytes % (A) 10.8 %; MCH 32.6 pg (27.0-32.0); MCHC 32.2 g/dL (32.0-37.0); MCV 101.5 fL (80.0-97.0); Mean Platelet Volume 10.8 fL (9.5-12.2); Monocytes # (A) 0.37 X 10*3/uL (0.20-1.00); Monocytes % (A) 2.5 %; Neutrophils # (A) 12.85 X 10*3/uL (1.80-7.70); Neutrophils % (A) 86.2 %; Platelet Count 228 X 10*3/uL (140-440); RBC 4.81 X 10*6/uL (4.40-5.60); RDW 12.6 % (11.5-14.5); WBC 14.91 X 10*3/uL (4.50-10.00)
[2021-12-15 20:44] LABS: African American GFR (CKD) 74.8 (60.0-200.0); Albumin 3.9 g/dL (3.8-4.9); Albumin/Globulin Ratio 1.07 (1.60-3.17); Anion Gap 10.3 mmol/L (10.00-18.00); BUN/Creat Ratio 15.58 Ratio (12.00-20.00); Blood Urea Nitrogen 17.6 mg/dL (9.0-27.0); Carbon Dioxide 18.8 mmol/L (20.0-27.5); Globulin 3.7 g/dL (1.6-3.3); Non-African American GFR(CKD) 64.6 (60.0-200.0); Potassium 4.4 mmol/L (3.5-5.5); Total Bilirubin 0.5 mg/dL (0.30-1.20); Total Protein 7.6 g/dL (6.2-8.2)
== END | disposition home or self-care (01) ==
LOC: LABWHC1 11:31
PROVIDERS: ATTEND Psychiatry & Neurology Neurology
DX: G47.00 Insomnia, unspecified (principal); R06.00 Dyspnea, unspecified
CPT/HCPCS: 36415; 71046; 80053; 83880; 85025

== ENCOUNTER → 2021-12-28 | Outpatient (CLI) | payer MEDICARE ==
--- NOTE | 2021-12-28 11:50 | CT ---
EXAMINATION TYPE: CT chest wo con DATE OF EXAM: 12/28/2021 COMPARISON: Chest x-ray December 15, 2021 HISTORY: Dysphagia, Ms. Nicky Gravis. CT DLP: 684 mGycm. Automated Exposure Control for Dose Reduction was Utilized. TECHNIQUE: CT scan of the thorax is performed without IV contrast. FINDINGS: LUNGS: The lungs are grossly clear, there is no concerning parenchymal mass or nodule identified. T here is no pleural effusion or pneumothorax seen. The tracheobronchial tree is patent. MEDIASTINUM: Lack of IV contrast is noted to limit evaluation for mediastinal and especially hilar ad enopathy. There are no definitive greater than 1 cm mediastinal lymph nodes. Single prominent 9 x 8 mm oval mass in the anterior superior mediastinum anterior to the left brachiocephalic vein axial reagan ge 12 favors prominent lymph node over other etiology. No cardiomegaly or pericardial effusion is see n. Atrophic thyroid gland. Mild coronary artery calcification. OTHER: Liver is heterogeneously hypointense with mild lobulated peripheral contour. Correlate for und erlying hepatocellular disease. Liver size is normal. No splenomegaly. [id number]-[id number] multilevel sp urring in the spine. IMPRESSION: Nonspecific 9 x 8 mm oval lesion in the anterior superior mediastinum. No acute or chroni c pulmonary parenchymal process.
--- NOTE | 2021-12-28 12:09 | FL ---
EXAMINATION TYPE: FL barium swallow w video DATE OF EXAM: 12/28/2021 CLINICAL HISTORY: 71-year-old male G70.00, R13.10 dysphagia. Choking and aspiration especially with l iquids. History of myasthenia gravis. TECHNIQUE: Deglutition study is performed utilizing thin liquid barium, honey and nectar thick liqui d barium, barium thick applesauce, and barium coated cracker. Total fluoroscopy time: 45 seconds. Total images: None. Real-time fluoroscopy support was provided to speech pathology. COMPARISON: None. FINDINGS: The oral and pharyngeal phases show satisfactory initiation and propagation with all modalities teste d. Normal mastication is seen with solid modalities tested. There is no evidence of penetration or aspiration with any modality tested. No significant pharyngeal residue was appreciated. IMPRESSION: Normal deglutition study. The patient is experiencing symptoms of esophageal reflux disease, a conve ntional esophagram can be considered. Please refer to speech therapist notes for further details if necessary.
== END | disposition home or self-care (01) ==
LOC: RADCTMAIN 10:52
PROVIDERS: ATTEND Psychiatry & Neurology Neurology
DX: J98.59 Other diseases of mediastinum, not elsewhere classified (principal)
CPT/HCPCS: 71250; 74230

== ENCOUNTER → 2022-03-07 | Outpatient (CLI) | payer MEDICARE ==
--- NOTE | 2022-03-07 20:32 | SFUN ---
SLEEP CENTER FOLLOW UP NOTE DATE OF SERVICE: 03/07/2022 This 71-year-old gentleman has been followed in Sleep Center for treatment of obstructive sleep apnea-hypopnea syndrome. The patient continues to use his CPAP equipment every night. [place] Sleepiness Scale is 5, which is normal. Since he had COVID-19 in 2020, sometimes the patient has had episodes of shortness of breath. I checked his CPAP unit. Pressure is 12 cm of water. Usage is 30/30 nights for more than 4 hours, average 6.7 hours per night. Leak is 31 L/minute, which is increased, but the patient is using a chinstrap. He is using an AirFit nasal pillow mask under the nose. Apnea-hypopnea index is 2.6, which is totally normal. MEDICATIONS: 1. Synthroid 137 mcg once a day. 2. Metoprolol 100 mg three times a day according to previous record. 3. Zetia 10 mg once a day. 4. Altace 5 mg once a day. 5. Xarelto 20 mg once a day. 6. Lasix 40 mg once a day. 7. 180 mg three times a day. PHYSICAL EXAMINATION: GENERAL: Pleasant patient in no distress. VITAL SIGNS: BP 93/61, HR 90, RR 16, weight 267.2. Patient's weight increased by about 6 pounds compared to the previous visit. Temperature 96.7, oxygen saturation at room air 95%. HEENT: PERRLA, EOMI, evaluation of oropharynx showed tongue protrudes midline. Extremely low position of soft palate; Mallampati IV. NECK: Supple, no JVD. Thyroid is not palpable. LUNGS: Clear to percussion and to auscultation. Good air exchange. No wheezing or rhonchi. HEART: S1, S2 regular. No murmurs, gallops, or rubs. ABDOMEN: Obese. EXTREMITIES: No clubbing or cyanosis. MIDDLE SCHOOL GUIDANCE COUNSELOR: Awake, alert, and oriented X3. Cranial nerves 2 to 7 intact. There is no fasciculation or atrophy. noted. No focal deficits observed. IMPRESSION: 1. Obstructive sleep apnea-hypopnea syndrome. Patient demonstrated great compliance with treatment, benefitting from treatment. Normal respiration on CPAP. 2. Obesity. 3. Status post COVID-19 in 2020, episodes of shortness of breath. 4. History of atrial fibrillation. 5. Hypothyroidism. 6. Myasthenia gravis; patient has had more problems after COVID-19. 7. Hyperlipidemia. 8. History of biliary cirrhosis. PLAN: 1. Patient is planning for evaluation with Pulmonary because of episodes of shortness of breath and COVID-19 during the past year. 2. Patient should continue to use his CPAP equipment every night. 3. Aggressive losing weight program. 4. Precautions related to driving. No driving if feeling any sleepiness. 5. I wrote a prescription for all necessary supplies, including nasal pillow, mask, heated tube, filters. Thank you very much for allowing me to participate in the management of your patient. Sincerely, Chirag Fuentes MD, PhD, FAASM Diplomat of [place] [employer] Sleep Medicine Board of [place] [employer] of [employer] Medicine Tableau Report Developer of [facility] [place] TAD / LYLE: [id number] /
== END ==
LOC: SLEEP 16:21
PROVIDERS: ATTEND Internal Medicine
DX: G47.33 Obstructive sleep apnea (adult) (pediatric) (principal); E66.9 Obesity, unspecified; Z86.16 Personal history of COVID-19; Z99.89 Dependence on other enabling machines and devices; I48.91 Unspecified atrial fibrillation; E03.9 Hypothyroidism, unspecified; E78.5 Hyperlipidemia, unspecified; G70.00 Myasthenia gravis without (acute) exacerbation; Z87.19 Personal history of other diseases of the digestive system; Z79.890 Hormone replacement therapy

== ENCOUNTER → 2022-03-14 | Outpatient (CLI) | payer MEDICARE ==
[2022-03-14 23:29] LABS: HCT 48.2 % (39.6-50.0); HGB 15.6 g/dL (13.0-17.0); MCH 32.4 pg (27.0-32.0); MCHC 32.4 g/dL (32.0-37.0); MCV 100.2 fL (80.0-97.0); Mean Platelet Volume 11.3 fL (9.5-12.2); NRBC Per 100 WBC 0 /100 WBCS (0.0-0.0); Platelet Count 201 X 10*3/uL (140-440); RBC 4.81 X 10*6/uL (4.40-5.60); RDW 12.8 % (11.5-14.5); WBC 8.08 X 10*3/uL (4.50-10.00)
[2022-03-15 01:18] LABS: ALT 60 U/L (10-49); AST 43 U/L (14-35); African American GFR (CKD) 58.8 (60.0-200.0); Albumin 3.9 g/dL (3.8-4.9); Albumin/Globulin Ratio 1.21 (1.60-3.17); Alkaline Phosphatase 72 U/L (41-126); BUN/Creat Ratio 13.55 Ratio (12.00-20.00); Blood Urea Nitrogen 18.7 mg/dL (9.0-27.0); Calcium 8.8 mg/dL (8.7-10.3); Carbon Dioxide 23.3 mmol/L (20.0-27.5); Chloride 107 mmol/L (96-109); Globulin 3.2 g/dL (1.6-3.3); Glucose 100 mg/dL (70-110); LDL Cholesterol,Calculated 97.9 mg/dL (0.0-131.0); Non-African American GFR(CKD) 50.7 (60.0-200.0); Potassium 4.5 mmol/L (3.5-5.5); Sodium 140 mmol/L (135-145); Total Protein 7.1 g/dL (6.2-8.2); VLDL Calculation 18.76 mg/dL (5.00-40.00)
== END | disposition home or self-care (01) ==
LOC: LABWHC1 15:11
PROVIDERS: ATTEND Internal Medicine
DX: I10 Essential (primary) hypertension (principal); E03.9 Hypothyroidism, unspecified; E55.9 Vitamin D deficiency, unspecified; E78.00 Pure hypercholesterolemia, unspecified; D75.89 Other specified diseases of blood and blood-forming organs; R73.03 Prediabetes
CPT/HCPCS: 36415; 80053; 80061; 82306; 83036; 84439; 84443; 85027

== ENCOUNTER → 2022-05-10 | Outpatient (CLI) | payer MEDICARE ==
[2022-05-10 18:15] LABS: Basophils # (A) 0.06 X 10*3/uL (0.00-0.10); Basophils % (A) 0.8 %; Eosinophils # (A) 0.22 X 10*3/uL (0.04-0.35); Eosinophils % (A) 3.1 %; HCT 46.8 % (39.6-50.0); HGB 15.4 g/dL (13.0-17.0); Immature Grans, Automated 0.3 %; Lymphocytes # (A) 2.43 X 10*3/uL (0.90-5.00); Lymphocytes % (A) 34.2 %; MCH 32.2 pg (27.0-32.0); MCHC 32.9 g/dL (32.0-37.0); MCV 97.7 fL (80.0-97.0); Mean Platelet Volume 11.2 fL (9.5-12.2); Monocytes % (A) 11.3 %; NRBC Per 100 WBC 0 /100 WBCS (0.0-0.0); Neutrophils # (A) 3.57 X 10*3/uL (1.80-7.70); Neutrophils % (A) 50.3 %; Platelet Count 259 X 10*3/uL (140-440); RBC 4.79 X 10*6/uL (4.40-5.60)
[2022-05-10 18:27] LABS: Albumin/Globulin Ratio 1.29 (1.60-3.17); Anion Gap 9.7 mmol/L (10.00-18.00); BUN/Creat Ratio 17.42 Ratio (12.00-20.00); Carbon Dioxide 24.7 mmol/L (20.0-27.5); Globulin 3.1 g/dL (1.6-3.3); Non-African American GFR(CKD) 53.5 (60.0-200.0); Potassium 4.5 mmol/L (3.5-5.5); Total Bilirubin 0.7 mg/dL (0.30-1.20); Total Protein 7.1 g/dL (6.2-8.2)
== END | disposition home or self-care (01) ==
LOC: LABWHC1 13:56
PROVIDERS: ATTEND Psychiatry & Neurology Neurology
DX: Z00.00 Encounter for general adult medical examination without abnormal findings (principal)
CPT/HCPCS: 36415; 80053; 85025

== ENCOUNTER → 2022-07-31 | Outpatient (CLI) | payer MEDICARE ==
[2022-08-03 12:41] LABS: Gamma Globulin 1.99 g/dL (0.70-1.50)
== END | disposition home or self-care (01) ==
LOC: LABWHC1 21:59
PROVIDERS: ATTEND Psychiatry & Neurology Neurology
DX: Z00.00 Encounter for general adult medical examination without abnormal findings (principal); G90.09 Other idiopathic peripheral autonomic neuropathy; R26.9 Unspecified abnormalities of gait and mobility
CPT/HCPCS: 36415; 82607; 83036; 84165; 84207; 85652; 86038; 86334

== ENCOUNTER → 2022-09-06 | Outpatient (CLI) | payer MEDICARE ==
[2022-09-06 19:51] LABS: ALT 62 U/L (10-49); AST 46 U/L (14-35); African American GFR (CKD) 54.9 (60.0-200.0); Albumin 4.1 g/dL (3.8-4.9); Albumin/Globulin Ratio 1.23 (1.60-3.17); Alkaline Phosphatase 86 U/L (41-126); BUN/Creat Ratio 16.37 Ratio (12.00-20.00); Blood Urea Nitrogen 23.9 mg/dL (9.0-27.0); Calcium 8.8 mg/dL (8.7-10.3); Carbon Dioxide 22.2 mmol/L (20.0-27.5); Chloride 106 mmol/L (96-109); Chol/HDL Ratio 3.91 Ratio; Globulin 3.3 g/dL (1.6-3.3); Glucose 93 mg/dL (70-110); Non-African American GFR(CKD) 47.4 (60.0-200.0); Potassium 4.5 mmol/L (3.5-5.5); Sodium 140 mmol/L (135-145); Total Protein 7.4 g/dL (6.2-8.2)
== END | disposition home or self-care (01) ==
LOC: LABWHC1 12:56
PROVIDERS: ATTEND Internal Medicine
DX: I10 Essential (primary) hypertension (principal); E03.9 Hypothyroidism, unspecified; E55.9 Vitamin D deficiency, unspecified; E78.00 Pure hypercholesterolemia, unspecified; R73.03 Prediabetes
CPT/HCPCS: 36415; 80053; 80061; 82306; 83036; 84439; 84443

== ENCOUNTER → 2022-09-19 | Outpatient (CLI) | payer MEDICARE ==
--- NOTE | 2022-09-19 16:40 | P.PN ---
Subjective DATE: 09/19/2022[] FOLLOW UP VISIT. Patient with obstructive sleep apnea hypopnea syndrome return to sleep center for follow-up visit. Information from previous visit have been reviewed. Patient is using PAP equipment every night for the whole night, getting PAP supplies in time. The patient does not have significant problems with the mask, PAP unit and humidification. [place] sleepiness scale is 3, which is normal. I checked information from PAP unit. PAP unit pressure 12 cm H2O. Usage is 100 % for more then 4 hours, average 7.1 hours per night. Leak is increased to 42 l/m. Patient using nasal pillow mask with chinstrap. Apnea Hypopnea Index is 5.1, which is normal. MEDICATIONS:1. Synthroid 137 g once a day 2. Metoprolol 100 mg 3 times a day 3. Zetia 10 mg once a day 4. Xarelto 20 mg once a day 5. Lasix 40 mg once a day During physical exam: GENERAL: A pleasant patient without any distress. VITAL SIGNS: BP 98/61, HR 72, RR 16 , weight 250, height 5 foot 6 inches, body mass index 40.3, patient lost 17 pounds since previous visit, temperature 97.4, oxygen saturation at room air 96 % . HEENT: PERRLA, EOMI.low position of soft palate, Mallapati 4 . NECK: Supple. No JVD. LUNGS: Clear to percussion and to auscultation. Good air exchange. No wheezing or rhonchi. HEART: S1, S2 regular. ABDOMEN: Soft and nontender. Obese EXTREMITIES: No clubbing or cyanosis. DINKEY LOCOMOTIVE ENGINEER: Awake, alert, and oriented x3. No focal deficit. Impressions: 1. Obstructive sleep apnea-hypopnea syndrome. Patient demonstrated great compliance with treatment, benefiting from treatment. 2. Obesity, patient lost 17 pounds since previous visit. 3. Status post COVID- and 2020. 4. Atrial fibrillation. 5. Hypothyroidism. 6. Miastenia gravis. 7. Hyperlipidemia. 8. History of biliary cirrhosis. Plan: 1. Continue using PAP equipment every night for the whole night. 2. To change air filter at least 1-2 times per month. 3. PAP unit should stay lower then position of the head. 4. Advised patient to remove all remaining water from humidifier canister daily and make it dry after each usage. Refill canister with fresh distilled water before each usage. 5. Sleep hygiene with regular time in bed for at least 8 hours. 6. Precautions related to driving. No driving if feel any sleepiness. 7. I will maintain prescription for PAP supplies including mask, tube, filters. 8. Follow up visit in 6 months or earlier if patient has any problems. 9. Watching and continue losing weight. Thank you very much for allowing me to participate in the management of your patient. Chirag Fuentes MD, PhD, FAASM. Diplomat of [place] [employer], Sleep Medicine Board by [place] Board of [employer] Medicine Documentation Nurse of [facility] [place]
== END | disposition home or self-care (01) ==
LOC: SLEEP 15:55
PROVIDERS: ATTEND Internal Medicine
DX: Z53.9 Procedure and treatment not carried out, unspecified reason (principal)
CPT/HCPCS: 99212

== ENCOUNTER → 2022-11-12 | Outpatient (CLI) | payer MEDICARE | END | disposition home or self-care (01) | LOC: LABWHC1 11:26 | PROVIDERS: ATTEND Urology | DX: R97.20 Elevated prostate specific antigen [PSA] (principal) | CPT/HCPCS: 36415; 84153 ==

== ENCOUNTER → 2023-03-12 | Outpatient (CLI) | payer MEDICARE ==
[2023-03-12 23:27] LABS: ALT 80 U/L (10-49); AST 56 U/L (14-35); African American GFR (CKD) 70.5 (60.0-200.0); Albumin 4.1 g/dL (3.8-4.9); Albumin/Globulin Ratio 1.29 (1.60-3.17); Alkaline Phosphatase 87 U/L (41-126); BUN/Creat Ratio 18.31 Ratio (12.00-20.00); Blood Urea Nitrogen 21.6 mg/dL (9.0-27.0); Calcium 8.8 mg/dL (8.7-10.3); Carbon Dioxide 21.7 mmol/L (20.0-27.5); Chloride 107 mmol/L (96-109); Chol/HDL Ratio 3.62 Ratio; Globulin 3.2 g/dL (1.6-3.3); Glucose 88 mg/dL (70-110); LDL Cholesterol,Calculated 94.6 mg/dL (0.0-131.0); Non-African American GFR(CKD) 60.9 (60.0-200.0); Potassium 4.3 mmol/L (3.5-5.5); Sodium 138 mmol/L (135-145); Total Protein 7.4 g/dL (6.2-8.2)
== END | disposition home or self-care (01) ==
LOC: LABWHC1 13:44
PROVIDERS: ATTEND Internal Medicine
DX: I10 Essential (primary) hypertension (principal); E03.9 Hypothyroidism, unspecified; E55.9 Vitamin D deficiency, unspecified; E78.00 Pure hypercholesterolemia, unspecified; R73.03 Prediabetes
CPT/HCPCS: 36415; 80053; 80061; 82306; 83036; 84439; 84443

== ENCOUNTER → 2023-03-27 | Outpatient (CLI) | payer MEDICARE ==
--- NOTE | 2023-03-27 16:30 | P.PN ---
Subjective DATE: 03/27/2023 FOLLOW UP VISIT. Patient with obstructive sleep apnea hypopnea syndrome return to sleep center for follow-up visit. Information from previous visit have been reviewed. Patient is using PAP equipment every night for the whole night, getting PAP supplies in time. The patient does not have significant problems with the mask, PAP unit and humidification. [place] sleepiness scale is 5, which is normal. I checked information from PAP unit. PAP unit pressure 12 cm H2O. Usage is 100 % for more then 4 hours, average 7.1 hours per night. Leak is slightly high 38 l/m. Apnea Hypopnea Index is 3.5, which is normal. MEDICATIONS:1. Metoprolol 100 mg 3 times a day 2. Zetia 10 mg once a day 3. Xarelto 20 mg once a day 4. Synthroid 137 g once a day 5. Lasix 40 mg once a day During physical exam: GENERAL: A pleasant patient without any distress. VITAL SIGNS: BP 119/78, HR 66, RR 16 , weight 252.6, temperature 96.7, oxygen saturation at room air 98 % . HEENT: PERRLA, EOMI.low position of soft palate, Mallapati 4 . NECK: Supple. No JVD. LUNGS: Clear to percussion and to auscultation. Good air exchange. No wheezing or rhonchi. HEART: S1, S2 regular. ABDOMEN: Soft and nontender. Obese EXTREMITIES: No clubbing or cyanosis. PHYSICAL LABORATORY ASSISTANT: Awake, alert, and oriented x3. No focal deficit. Impressions: 1. Obstructive sleep apnea-hypopnea syndrome. Patient demonstrated great com pliance with treatment, benefiting from treatment. 2. Obesity, BMI 41.2. 3. History of lateral fibrillation. 4. Hypothyroidism. 5. History of hyperlipidemia. 6. History of biliary cirrhosis. 7. History of mastodynia gravis. Plan: 1. Continue using PAP equipment every night for the whole night. 2. To change air filter at least 1-2 times per month. 3. PAP unit should stay lower then position of the head. 4. Advised patient to remove all remaining water from humidifier canister daily and make it dry after each usage. Refill canister with fresh distilled water before each usage. 5. Sleep hygiene with regular time in bed for at least 8 hours. 6. Precautions related to driving. No driving if feel any sleepiness. 7. I will maintain prescription for PAP supplies including mask, tube, filters. 8. Watching and losing weight. 9. Follow up visit in 6 months or earlier if patient has any problems. Thank you very much for allowing me to participate in the management of your patient. Chirag Fuentes MD, PhD, FAASM. Diplomat of [place] [employer] Medicine, Sleep Medicine Board by [place] [employer] Medicine Social Science Research Assistant of [facility] [place]
== END ==
LOC: SLEEP 15:55
PROVIDERS: ATTEND Internal Medicine
DX: G47.33 Obstructive sleep apnea (adult) (pediatric) (principal); E03.9 Hypothyroidism, unspecified; Z79.890 Hormone replacement therapy; E66.9 Obesity, unspecified; E78.5 Hyperlipidemia, unspecified; K74.5 Biliary cirrhosis, unspecified; Z68.41 Body mass index [BMI] 40.0-44.9, adult; Z79.01 Long term (current) use of anticoagulants; Z79.899 Other long term (current) drug therapy; Z99.89 Dependence on other enabling machines and devices
CPT/HCPCS: 99212

== ENCOUNTER → 2023-07-15 | Outpatient (CLI) | payer MEDICARE ==
--- NOTE | 2023-07-15 15:06 | US ---
EXAMINATION TYPE: US liver DATE OF EXAM: 07/15/2023 COMPARISON: CLINICAL INDICATION: Male, 72 years old with history of R74.01 ELEV LIVER TRANSAMINASE LEVELS; Abnorm al labs. No pain. TECHNIQUE: Multiple sonographic images of the right upper quadrant are obtained. FINDINGS: EXAM MEASUREMENTS: Liver Length: 16.2 cm Gallbladder Wall: 0.2 cm CBD: 0.4 cm Right Kidney: 9.6 x 5.1 x 5.2 cm Pancreas: Head and tail obscured by overlying bowel gas. Echogenic in appearance. Liver: Appears nodular. Echogenic in appearance. No prominent focal masses or lesions seen. Gallbladder: mobile echogenic foci with shadowing with largest = 0.9 cm Evidence for sonographic Benitez's sign: neg CBD: wnl Right Kidney: No hydronephrosis or masses seen IMPRESSION: 1. Cholelithiasis.
== END | disposition home or self-care (01) ==
LOC: RADUSWWP 14:19
PROVIDERS: ATTEND Internal Medicine Gastroenterology
DX: K80.20 Calculus of gallbladder without cholecystitis without obstruction (principal); R74.01 Elevation of levels of liver transaminase levels
CPT/HCPCS: 76705

== ENCOUNTER → 2023-07-15 | Outpatient (CLI) | payer MEDICARE ==
[2023-07-15 17:14] LABS: Ceruloplasmin 18.6 mg/dL (20.0-60.0)
[2023-07-15 17:22] LABS: % Iron Saturation 44.85 (15.00-50.00); ALT 55 U/L (10-49); AST 46 U/L (14-35); Albumin 3.9 d/dL (3.8-4.9); Albumin/Globulin Ratio 1.26 Ratio (1.60-3.17); Alkaline Phosphatase 61 U/L (41-126); Blood Urea Nitrogen 14.3 mg/dL (9.0-27.0); Carbon Dioxide 22.2 mmol/L (21.6-31.8); Chloride 108 mmol/L (96-109); Globulin 3.1 d/dL (1.6-3.3); Glucose 107 mg/dL (70-110); Iron 148 UG/DL (65-175); Potassium 4.5 mmol/L (3.5-5.5); Sodium 140 mmol/L (135-145); Total Bilirubin 0.8 mg/dL (0.3-1.2); Total Iron Binding Capacity 330 UG/DL (228-460)
[2023-07-15 17:24] LABS: Basophils # (A) 0.07 X 10*3/uL (0.00-0.10); Eosinophils # (A) 0.15 X 10*3/uL (0.04-0.35); HCT 49.1 % (39.6-50.0); HGB 16.3 d/dL (13.0-17.0); Lymphocytes # (A) 2.86 X 10*3/uL (0.90-5.00); Lymphocytes % (A) 38.9 %; MCH 34.1 pg (27.0-32.0); MCHC 33.2 d/dL (32.0-37.0); MCV 102.7 FL (80.0-97.0); Mean Platelet Volume 11.2 FL (9.5-12.2); Monocytes # (A) 0.63 X 10*3/uL (0.20-1.00); Monocytes % (A) 8.6 %; NRBC Per 100 WBC 0 X 10*3/uL (0.00-0.01); Neutrophils # (A) 3.63 X 10*3/uL (1.80-7.70); Neutrophils % (A) 49.4 %; Platelet Count 168 X 10*3/uL (140-440); RBC 4.78 X 10*6/uL (4.40-5.60); RDW 13.2 % (11.5-14.5); WBC 7.35 X 10*3/uL (4.50-10.00)
== END | disposition home or self-care (01) ==
LOC: LABWHC1 13:37
PROVIDERS: ATTEND Internal Medicine Gastroenterology
DX: R74.01 Elevation of levels of liver transaminase levels (principal)
CPT/HCPCS: 36415; 80053; 82103; 82390; 82728; 83516; 83540; 83550; 85025; 86038

== ENCOUNTER → 2023-09-13 | Day surgery (SDC) | payer MEDICARE ==
[~2023-09-13] MED LIST: LACTATED RINGERS 1,000 ML IV SCH; LIDOCAINE 1% (10MG/ML) FOR IV START INTRADERMA PRN; LIDOCAINE 1% INJ 10MG/ML (20 ML MDV) ONE; PROPOFOL 10 MG/ML 20 ML VIAL IV ONE
[2023-09-13 15:00] VITALS: TEMP 96.8
--- NOTE | 2023-09-13 15:44 | P.PCN ---
Date of Procedure: 09/13/23 Procedure(s) Performed: Brief history: Patient is a pleasant 72-year-old white male scheduled for an elective upper endoscopy as well as colonoscopy as a part of evaluation of liver cirrhosis/PBC and screening for esophageal varices and screening for colon cancer Procedure performed: Esophagogastroduodenoscopy Colonoscopy Preoperative diagnosis: Screening for esophageal varices/liver cirrhosis Screening for colon cancer Anesthesia: MAC Procedure: After informed consent was obtained from the patient was brought into the endoscopy unit and IV sedation was administered by anesthesia under continuous monitoring. Initially upper endoscopy was done. The Olympus GF 160 video endoscope was inserted inserted into the mouth and esophagus intubated without any difficulty and was gradually advanced into the stomach and duodenum and carefully examined. The bulb and second part of the duodenum appeared normal. The scope was then withdrawn into the stomach adequately insufflated with air and upon careful examination the antrum and body, cardia and fundus appeared normal. The scope was then withdrawn into the esophagus. The GE junction was located at 40 cm to the incisors. It appeared regular with no erythema erosions or ulcerations. Rest of the esophagus appeared normal. Patient tolerated the procedure well. At this time the patient continued to remain sedation. Initial digital rectal examination was normal. Olympus CF 160 video colonoscope was then inserted into the rectum and gradually advanced to the cecum without any difficulty. Careful examination was performed as the scope was gradually being withdrawn. The prep was excellent. The cecum, ascending colon, transverse colon, descending colon, sigmoid colon and rectum appeared normal. Scattered sigmoid diverticulosis. Retroflexion was performed in the rectum and no lesions were noted. Patient tolerated the procedure well. Impression: 1. Upper endoscopy revealed mild antral gastritis but no evidence of gastric or esophageal varices 2. Colonoscopy revealed scattered sigmoid diverticulosis but no evidence of c olorectal neoplasia Recommendations: Findings of this examination were discussed with the patient as well as his family. He was advised to have a repeat upper endoscopy in 2-3 years to screen for esophageal varices. Recommend repeat screening colonoscopy in 10 years.
[2023-09-13 16:30] VITALS: BP 124/75; PULSE 67; RESP 20
== END ==
LOC: ORWHC2ENDO 13:39
PROVIDERS: ATTEND Internal Medicine Gastroenterology
DX: Z12.11 Encounter for screening for malignant neoplasm of colon (principal); K57.30 Diverticulosis of large intestine without perforation or abscess without bleeding; I10 Essential (primary) hypertension; I48.91 Unspecified atrial fibrillation; I85.00 Esophageal varices without bleeding; K74.60 Unspecified cirrhosis of liver; G47.33 Obstructive sleep apnea (adult) (pediatric); E07.9 Disorder of thyroid, unspecified; Z79.890 Hormone replacement therapy; Z79.01 Long term (current) use of anticoagulants; Z79.899 Other long term (current) drug therapy
CPT/HCPCS: 43235; J2001; J2704; G0121; 45378

== ENCOUNTER → 2023-10-16 | Outpatient (CLI) | payer MEDICARE ==
--- NOTE | 2023-10-16 17:55 | P.PN ---
Subjective DATE: 10/16/2023 FOLLOW UP VISIT. Patient with obstructive sleep apnea hypopnea syndrome return to sleep center for follow-up visit. Information from previous visit have been reviewed. Patient is using PAP equipment every night for the whole night, getting PAP supplies in time. The patient does not have significant problems with the mask, PAP unit and humidification. [place] sleepiness scale is 3. I checked information from PAP unit. PAP unit pressure 12 cm H2O. Usage is 100 % for more then 4 hours, average 7.2 hours per night. Leak is increased to 46 l/m. Apnea Hypopnea Index is 4.0, which is normal. MEDICATIONS:1. Metoprolol 100 mg 3 times a day 2. Xarelto 20 mg once a day 3. Zetia 10 mg once a day 4. Lasix 40 mg once a day 5. Synthroid 137 g once a day During physical exam: GENERAL: A pleasant patient without any distress. VITAL SIGNS: BP 117/80, HR 79, RR 12, weight 258.6, temperature 97.7, oxygen saturation at room air 97 % . HEENT: PERRLA, EOMI.low position of soft palate, Mallapati 4 . NECK: Supple. No JVD. LUNGS: Clear to percussion and to auscultation. Good air exchange. No wheezing or rhonchi. HEART: S1, S2 regular. ABDOMEN: Soft and nontender.[] EXTREMITIES: No clubbing or cyanosis. WAREHOUSE COORDINATOR: Awake, alert, and oriented x3. No focal deficit. Impressions: 1. Obstructive sleep apnea-hypopnea syndrome. Patient demonstrated great compliance with treatment, benefiting from treatment. 2. Atrial fibrillation. 3. Obesity, patient appears weight of 6 pounds comparing with previous visit. 4. Hypothyroidism. 5. History of hyperlipidemia. 6. History of myastenia gravis.. 7. History of biliary cirrhosis. Plan: 1. Continue using PAP equipment every night for the whole night. 2. To change air filter at least 1-2 times per month. 3. PAP unit should stay lower then position of the head. 4. Advised patient to remove all remaining water from humidifier canister daily and make it dry after each usage. Refill canister with fresh distilled water before each usage. 5. Sleep hygiene with regular time in bed for at least 8 hours. 6. Precautions related to driving. No driving if feel any sleepiness. 7. I will maintain prescription for PAP supplies including mask, tube, filters. 8. Follow up visit in 6 months or earlier if patient has any problems. 9. Watching and losing weight. Thank you very much for allowing me to participate in the management of your patient. Chirag Fuentes MD, PhD, FAASM. Diplomat of [place] Board [employer] Sleep Medicine, Sleep Medicine Board by [place] [employer] Medicine Fabric Worker Fitter of [facility] [place]
== END ==
LOC: SLEEP 16:14
PROVIDERS: ATTEND Internal Medicine
DX: G47.33 Obstructive sleep apnea (adult) (pediatric) (principal); I48.91 Unspecified atrial fibrillation; E03.9 Hypothyroidism, unspecified; E66.9 Obesity, unspecified; E78.5 Hyperlipidemia, unspecified; K74.5 Biliary cirrhosis, unspecified; Z79.01 Long term (current) use of anticoagulants; Z79.890 Hormone replacement therapy; Z99.89 Dependence on other enabling machines and devices; Z87.39 Personal history of other diseases of the musculoskeletal system and connective tissue
CPT/HCPCS: 99212

== ENCOUNTER → 2024-01-13 | Outpatient (CLI) | payer MEDICARE ==
[2024-01-14 01:42] LABS: ALT 64 U/L (10-49); AST 45 U/L (14-35); Albumin 3.9 g/dL (3.8-4.9); Albumin/Globulin Ratio 1.22 Ratio (1.60-3.17); Alkaline Phosphatase 68 U/L (41-126); BUN/Creat Ratio 16.29 Ratio (12.00-20.00); Blood Urea Nitrogen 22.8 mg/dL (9.0-27.0); Calcium 8.8 mg/dL (8.7-10.3); Carbon Dioxide 23.1 mmol/L (21.6-31.8); Chloride 104 mmol/L (96-109); Globulin 3.2 g/dL (1.6-3.3); Glucose 174 mg/dL (70-110); Potassium 4.3 mmol/L (3.5-5.5); Sodium 138 mmol/L (135-145); Total Bilirubin 0.5 mg/dL (0.3-1.2); Total Protein 7.1 g/dL (6.2-8.2)
[2024-01-14 02:21] LABS: HCT 51.8 % (39.6-50.0); HGB 16.9 g/dL (13.0-17.0); Lymphocytes % (A) 23.2 %; MCH 33.8 pg (27.0-32.0); MCHC 32.6 g/dL (32.0-37.0); MCV 103.6 FL (80.0-97.0); Mean Platelet Volume 12.1 FL (9.5-12.2); NRBC Per 100 WBC 0 X 10*3/uL (0.00-0.01); Neutrophils % (A) 65.5 %; Platelet Count 103 X 10*3/uL (140-440); RDW 13.2 % (11.5-14.5); WBC 7.72 X 10*3/uL (4.50-10.00)
[2024-01-14 02:22] LABS: Basophils # (A) 0.05 X 10*3/uL (0.00-0.10); Basophils % (A) 0.6 %; Eosinophils # (A) 0.13 X 10*3/uL (0.04-0.35); Eosinophils % (A) 1.7 %; Lymphocytes # (A) 1.79 X 10*3/uL (0.90-5.00); Monocytes # (A) 0.67 X 10*3/uL (0.20-1.00); Monocytes % (A) 8.7 %; Neutrophils # (A) 5.06 X 10*3/uL (1.80-7.70)
== END | disposition home or self-care (01) ==
LOC: LABWHC1 15:28
PROVIDERS: ATTEND Internal Medicine Gastroenterology
DX: K74.3 Primary biliary cirrhosis (principal)
CPT/HCPCS: 36415; 80053; 85025

== ENCOUNTER → 2024-02-04 | Outpatient (CLI) | payer MEDICARE | END | disposition home or self-care (01) | LOC: LABWHC1 15:47 | PROVIDERS: ATTEND Urology | DX: N40.1 Benign prostatic hyperplasia with lower urinary tract symptoms (principal) | CPT/HCPCS: 36415; 84153 ==

== ENCOUNTER → 2024-03-21 | Outpatient (CLI) | payer MEDICARE ==
[2024-03-21 11:37] LABS: ALT 57 U/L (4-49); AST 44 U/L (17-59); African American GFR (CKD) 64 (>60 ml/min/1.73 sqM); Albumin 3.5 g/dL (3.5-5.0); Alkaline Phosphatase 73 U/L (38-126); Anion Gap 8 mmol/L; Blood Urea Nitrogen 19 mg/dL (9-20); Calcium 8.5 mg/dL (8.4-10.2); Carbon Dioxide 19 mmol/L (22-30); Chloride 109 mmol/L (98-107); Globulin 3.6 g/dL; Glucose 123 mg/dL (74-99); Non-African American GFR(CKD) 55 (>60 ml/min/1.73 sqM); Potassium 4.5 mmol/L (3.5-5.1); Sodium 136 mmol/L (137-145); Total Bilirubin 1.1 mg/dL (0.2-1.3); Total Protein 7.1 g/dL (6.3-8.2)
[2024-03-21 12:54] LABS: T4, Free (Free Thyroxine) 1.05 ng/dL (0.78-2.19)
[2024-03-21 23:13] LABS: LDL Cholesterol,Calculated 109.1 mg/dL (0.0-131.0); VLDL Calculation 18.12 mg/dL (5.00-40.00)
== END | disposition home or self-care (01) ==
LOC: LABWHC1 09:24
PROVIDERS: ATTEND Internal Medicine
DX: N18.30 Chronic kidney disease, stage 3 unspecified (principal); E03.9 Hypothyroidism, unspecified; E55.9 Vitamin D deficiency, unspecified; E78.00 Pure hypercholesterolemia, unspecified; R73.03 Prediabetes
CPT/HCPCS: 36415; 80053; 80061; 82306; 83036; 84439; 84443

== ENCOUNTER → 2024-05-21 | Outpatient (CLI) | payer MEDICARE ==
[2024-05-21 16:47] VITALS: BP 94/64; PULSE 68; RESP 16; TEMP 97.7
--- NOTE | 2024-05-21 17:53 | P.PROGSL ---
Subjective DATE: 05/21/2024 FOLLOW UP VISIT. Patient with obstructive sleep apnea hypopnea syndrome return to sleep center for follow-up visit. Information from previous visit have been reviewed. Patient is using PAP equipment every night for the whole night, getting PAP supplies in time. CPAP unit periodically stops working at night. [place] sleepiness scale is 3, which is normal. I checked information from PAP unit. PAP unit pressure 12 cm H2O. Usage is 100% for more then 4 hours, average 7.2 hours per night. Leak is increased to 38 l/m. Apnea Hypopnea Index is 4.5, which is normal. MEDICATIONS: Please see below During physical exam: GENERAL: A pleasant patient without any distress. VITAL SIGNS: Please see below, weight 265 pounds. HEENT: PERRLA, EOMI.low position of soft palate, Mallapati 4 . NECK: Supple. No JVD. LUNGS: Clear to percussion and to auscultation. Good air exchange. No wheezing or rhonchi. HEART: S1, S2 regular. ABDOMEN: Soft and nontender. Obese EXTREMITIES: No clubbing or cyanosis. PANTOGRAPH MACHINE OPERATOR: Awake, alert, and oriented x3. No focal deficit. Impressions: 1. Obstructive sleep apnea-hypopnea syndrome. Patient demonstrated great compliance with treatment, benefiting from treatment. 2. Obesity, BMI 42.7, patient increased weight on 7 pounds comparing with previous visit. 3. Atrial fibrillation. 4. Hypothyroidism. 5. Myasthenia gravis. 6. History of hyperlipidemia. 7. History of biliary cirrhosis. Prescription to replace CPAP unit. CPAP unit has episodes of stop working at night. CPAP unit is old. Pressure in CPAP unit was increased to 13 cm of water. Plan: 1. Continue using PAP equipment every night for the whole night. 2. To change air filter at least 1-2 times per month. 3. PAP unit should stay lower then position of the head. 4. Advised patient to remove all remaining water from humidifier canister daily and make it dry after each usage. Refill canister with fresh distilled water before each usage. 5. Sleep hygiene with regular time in bed for at least 8 hours. 6. Precautions related to driving. No driving if feel any sleepiness. 7. I will maintain prescription for PAP supplies including mask, tube, filters. 8. Follow up visit in 1-3 months after patient will get new CPAP unit or earlier if patient has any problems. 9. Watching and losing weight. Thank you very much for allowing me to participate in the management of your patient. Chirag Fuentes MD, PhD, FAASM. Diplomat of [place] [employer] Sleep Medicine, Sleep Medicine Board by [place] [employer] Medicine Golf Cart Mechanic of [facility] [place] Objective - Vital Signs Vital Signs: Vital Signs Temp 97.7 F 05/21/24 16:44 Pulse 68 05/21/24 16:44 Resp 16 05/21/24 16:44 BP 94/64 05/21/24 16:44 Pulse Ox 96 05/21/24 16:44 FiO2 Home Medications: Home Medications Medication Instructions Recorded Confirmed Type Ergocalciferol [Vitamin D2 50,000 unit PO DIRECTED 01/16/16 05/21/24 History (DRISDOL)] Ezetimibe [Zetia] 10 mg PO DAILY 01/16/16 05/21/24 History Levothyroxine Sodium [Synthroid] 137 mcg PO DAILY 01/16/16 05/21/24 History Metoprolol Tartrate [Lopressor] 100 mg PO TID 01/16/16 05/21/24 History Rivaroxaban [Xarelto] 20 mg PO HS 01/16/16 05/21/24 History ramipriL [Altace] 5 mg PO DAILY 01/16/16 05/21/24 History Furosemide [Lasix] 40 mg PO DAILY 03/06/16 05/21/24 History Digoxin [Lanoxin] 125 mcg PO DAILY 09/11/23 05/21/24 History Pyridostigmine [Mestinon] 60 mg PO QID 09/11/23 05/21/24 History Unk Multi Vitamin 1 tab PO DAILY 09/11/23 05/21/24 History ursodioL [Ursodiol] 500 mg PO BID 09/11/23 05/21/24 History
== END ==
LOC: 3 N SLEEP 15:59
PROVIDERS: ATTEND Internal Medicine
DX: G47.33 Obstructive sleep apnea (adult) (pediatric) (principal); E66.9 Obesity, unspecified; I48.91 Unspecified atrial fibrillation; E03.9 Hypothyroidism, unspecified; G70.00 Myasthenia gravis without (acute) exacerbation; Z99.89 Dependence on other enabling machines and devices; Z86.39 Personal history of other endocrine, nutritional and metabolic disease; Z68.41 Body mass index [BMI] 40.0-44.9, adult; Z79.01 Long term (current) use of anticoagulants; Z79.890 Hormone replacement therapy; Z87.19 Personal history of other diseases of the digestive system
CPT/HCPCS: 99212

== ENCOUNTER → 2024-06-29 | Outpatient (CLI) | payer MEDICARE ==
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
== END | disposition home or self-care (01) ==
LOC: RADUSWWP 11:01
PROVIDERS: ATTEND Internal Medicine Gastroenterology
DX: K74.60 Unspecified cirrhosis of liver (principal); K80.20 Calculus of gallbladder without cholecystitis without obstruction
CPT/HCPCS: 76705

== ENCOUNTER → 2024-07-24 | Outpatient (CLI) | payer MEDICARE ==
[2024-07-24 17:06] LABS: INR 1.3 (<1.2); Partial Thromboplastin Time 28.4 sec (22.0-30.0); Prothrombin Time 13.2 sec (10.0-12.5)
[2024-07-25 04:45] LABS: C Reactive Protein 0.4 mg/dL (0.00-0.80)
== END | disposition home or self-care (01) ==
LOC: LABWHC1 16:22
PROVIDERS: ATTEND Internal Medicine Critical Care Medicine
DX: R53.83 Other fatigue (principal); R53.1 Weakness; K74.60 Unspecified cirrhosis of liver
CPT/HCPCS: 36415; 82140; 82550; 82728; 83615; 85610; 85652; 85730; 86140

== ENCOUNTER → 2024-08-27 | Outpatient (CLI) | payer MEDICARE ==
[2024-08-27 15:54] VITALS: BP 104/70; PULSE 76; RESP 16; TEMP 97.3
--- NOTE | 2024-08-27 16:21 | P.PROGSL ---
Subjective DATE: [] FOLLOW UP VISIT. Patient with obstructive sleep apnea hypopnea syndrome return to sleep center for follow-up visit. Information from previous visit have been reviewed. This is first visit after patient received new CPAP unit. Patient likes his new CPAP equipment. Patient is using PAP equipment every night for the whole night, getting PAP supplies in time. The patient does not have significant problems with the mask, PAP unit and humidification. [place] sleepiness scale is 3, which is normal. I checked information from PAP unit. PAP unit pressure 13 cm H2O. Usage is 100% for more then 4 hours, average 7.5 hours per night. Leak is increased to 36.0 l/m. Apnea Hypopnea Index is 4.7, which is normal. MEDICATIONS have been reviewed, please see below. During physical exam: GENERAL: A pleasant patient without any distress. VITAL SIGNS: Please see below, weight is 265 lbs. HEENT: PERRLA, EOMI.low position of soft palate, Mallapati 4 . NECK: Supple. No JVD. LUNGS: Clear to percussion and to auscultation. Good air exchange. No wheezing or rhonchi. HEART: S1, S2 regular. ABDOMEN: Soft and nontender. Obese EXTREMITIES: No clubbing or cyanosis. YARD PILOT: Awake, alert, and oriented x3. No focal deficit. Impressions: 1. Obstructive sleep apnea-hypopnea syndrome. Patient demonstrated great compliance with treatment, benefiting from treatment. 2. Obesity, BMI 42.7. 3. Atrial fibrillation. 4. Hypothyroidism. 5. History of myasthenia gravis. 6. History of biliary cirrhosis. 7. History of hyperlipidemia. I changed parameters of the CPAP machine to AutoPAP 6 to 15 cm of water, a Ramp was switched to Auto. Plan: 1. Continue using PAP equipment every night for the whole night. 2. Sleep hygiene with regular time in bed for at least 7.5-8 hours 3. PAP unit should stay lower then position of the head. 4. Advised patient to remove all remaining water from humidifier canister daily and make it dry after each usage. Refill canister with fresh distilled water before each usage. 5. Watching and losing weight. 6. Precautions related to driving. No driving if feel any sleepiness. 7. I will maintain prescription for PAP supplies including mask, tube, filters. 8. Follow up visit in 6 months or earlier if patient has any problems. Thank you very much for allowing me to participate in the management of your patient. Chirag Fuentes MD, PhD, FAASM. Diplomat of [place] Board [employer] Sleep Medicine, Sleep Medicine Board by [place] Board of Internal Medicine Associate Professor Of Biblical Studies of [facility] [place] Objective - Vital Signs Vital Signs: Vital Signs Temp 97.3 F L 08/27/24 15:53 Pulse 76 08/27/24 15:53 Resp 16 08/27/24 15:53 BP 104/70 08/27/24 15:53 Pulse Ox 96 08/27/24 15:53 FiO2 Intake & Output 08/26/24 08/27/24 08/27/24 18:59 06:59 18:59 Weight 120.202 kg Home Medications: Home Medications Medication Instructions Recorded Confirmed Type Ergocalciferol [Vitamin D2 50,000 unit PO DIRECTED 01/16/16 05/21/24 History (DRISDOL)] Ezetimibe [Zetia] 10 mg PO DAILY 01/16/16 05/21/24 History Levothyroxine Sodium [Synthroid] 137 mcg PO DAILY 01/16/16 05/21/24 History Metoprolol Tartrate [Lopressor] 100 mg PO TID 01/16/16 05/21/24 History Rivaroxaban [Xarelto] 20 mg PO HS 01/16/16 05/21/24 History ramipriL [Altace] 5 mg PO DAILY 01/16/16 05/21/24 History Furosemide [Lasix] 40 mg PO DAILY 03/06/16 05/21/24 History Digoxin [Lanoxin] 125 mcg PO DAILY 09/11/23 05/21/24 History Pyridostigmine [Mestinon] 60 mg PO QID 09/11/23 05/21/24 History Unk Multi Vitamin 1 tab PO DAILY 09/11/23 05/21/24 History ursodioL [Ursodiol] 500 mg PO BID 09/11/23 05/21/24 History
== END ==
LOC: 3 N SLEEP 15:36
PROVIDERS: ATTEND Internal Medicine
DX: G47.33 Obstructive sleep apnea (adult) (pediatric) (principal); E66.9 Obesity, unspecified; I48.91 Unspecified atrial fibrillation; E03.9 Hypothyroidism, unspecified; Z87.39 Personal history of other diseases of the musculoskeletal system and connective tissue; Z86.39 Personal history of other endocrine, nutritional and metabolic disease; Z68.41 Body mass index [BMI] 40.0-44.9, adult; Z99.89 Dependence on other enabling machines and devices; Z79.890 Hormone replacement therapy; Z79.01 Long term (current) use of anticoagulants
CPT/HCPCS: 99212

== ENCOUNTER → 2024-10-06 | Outpatient (CLI) | payer MEDICARE ==
[2024-10-06 21:48] LABS: ALT 79 U/L (10-49); AST 51 U/L (14-35); Albumin 3.9 g/dL (3.8-4.9); Albumin/Globulin Ratio 1.15 Ratio (1.60-3.17); Alkaline Phosphatase 79 U/L (41-126); Blood Urea Nitrogen 30.8 mg/dL (9.0-27.0); Calcium 8.8 mg/dL (8.7-10.3); Carbon Dioxide 19.1 mmol/L (21.6-31.8); Chloride 108 mmol/L (96-109); Chol/HDL Ratio 4.15 Ratio; Globulin 3.4 g/dL (1.6-3.3); Glucose 112 mg/dL (70-110); LDL Cholesterol,Calculated 112.2 mg/dL (0.0-131.0); Potassium 4.6 mmol/L (3.5-5.5); Sodium 138 mmol/L (135-145); T4, Free (Free Thyroxine) 1.14 ng/dL (0.80-1.80); Total Bilirubin 0.9 mg/dL (0.3-1.2); Total Protein 7.3 g/dL (6.2-8.2)
== END | disposition home or self-care (01) ==
LOC: LABWHC1 13:41
PROVIDERS: ATTEND Internal Medicine
DX: E55.9 Vitamin D deficiency, unspecified (principal); E78.00 Pure hypercholesterolemia, unspecified; E03.9 Hypothyroidism, unspecified; R73.03 Prediabetes; N18.30 Chronic kidney disease, stage 3 unspecified
CPT/HCPCS: 36415; 80053; 80061; 82306; 83036; 84439; 84443

== ENCOUNTER → 2025-03-15 | Outpatient (CLI) | payer MEDICARE | END | disposition home or self-care (01) | LOC: LABWHC1 15:26 | PROVIDERS: ATTEND Urology | DX: R97.20 Elevated prostate specific antigen [PSA] (principal) | CPT/HCPCS: 36415; 84153 ==

== ENCOUNTER → 2025-04-08 | Outpatient (CLI) | payer MEDICARE ==
[2025-04-08 21:20] LABS: Blood Urea Nitrogen 24.3 mg/dL (9.0-27.0); Carbon Dioxide 20.4 mmol/L (21.6-31.8); Chloride 107 mmol/L (96-109); Chol/HDL Ratio 4.17 Ratio; Glucose 101 mg/dL (70-110); LDL Cholesterol,Calculated 106.2 mg/dL (0.0-131.0); Potassium 4.7 mmol/L (3.5-5.5); Sodium 138 mmol/L (135-145)
[2025-04-08 21:21] LABS: ALT 49 U/L (10-49); AST 44 U/L (14-35); Albumin 3.9 g/dL (3.8-4.9); Albumin/Globulin Ratio 1.18 Ratio (1.60-3.17); Alkaline Phosphatase 66 U/L (41-126); Calcium 8.9 mg/dL (8.7-10.3); Globulin 3.3 g/dL (1.6-3.3); T4, Free (Free Thyroxine) 1.24 ng/dL (0.80-1.80); Total Bilirubin 1.1 mg/dL (0.3-1.2); Total Protein 7.2 g/dL (6.2-8.2)
== END | disposition home or self-care (01) ==
LOC: LABWHC1 14:11
PROVIDERS: ATTEND Internal Medicine
DX: E78.5 Hyperlipidemia, unspecified (principal); E03.9 Hypothyroidism, unspecified; E55.9 Vitamin D deficiency, unspecified; N18.30 Chronic kidney disease, stage 3 unspecified; R73.03 Prediabetes
CPT/HCPCS: 36415; 80053; 80061; 82306; 83036; 84439; 84443

== ENCOUNTER → 2025-05-06 | Outpatient (CLI) | payer MEDICARE ==
[2025-05-06 16:49] VITALS: BP 91/63; PULSE 55; RESP 16; TEMP 97.7
--- NOTE | 2025-05-06 18:25 | P.PROGSL ---
Subjective DATE: 05/06/2025 FOLLOW UP VISIT. Patient with obstructive sleep apnea hypopnea syndrome return to sleep center for follow-up visit. Information from previous visit have been reviewed. Patient is using PAP equipment every night for the whole night, getting PAP supplies in time. The patient does not have significant problems with the mask, PAP unit and humidification. Holstein sleepiness scale is 3, which is normal. I checked information from PAP unit. PAP unit pressure 6-15, average 12.0 cm H2O. Usage is 100% for more then 4 hours, average 7.5 hours per night. Leak is 13.7 l/m, which is in acceptable range. Apnea Hypopnea Index is 6.8, which is minimally increased. By reviewing reading from CPAP unit was able to see some increasing apnea hypopnea index with a relationship to the mask leak. MEDICATIONS have been reviewed, please see below. During physical exam: GENERAL: A pleasant patient without any distress. VITAL SIGNS: Please see below, weight is 258 lbs. HEENT: PERRLA, EOMI.low position of soft palate, Mallapati 4 . NECK: Supple. No JVD. LUNGS: Clear to percussion and to auscultation. Good air exchange. No wheezing or rhonchi. HEART: S1, S2 irregular. ABDOMEN: Soft and nontender. Obese EXTREMITIES: No clubbing or cyanosis. RESULTS TECHNICIAN: Awake, alert, and oriented x3. No focal deficit. Impressions: 1. Obstructive sleep apnea-hypopnea syndrome. Patient demonstrated great compliance with treatment, benefiting from treatment. 2. Obesity by 40.9, patient lost 7 pounds comparing with previous visit. 3. Atrial fibrillation. 4. Hypothyroidism. 5. History of biliary cirrhosis. 6. History of hyperlipidemia. 7. History of myasthenia gravis. Plan: 1. Continue using PAP equipment every night for the whole night. 2. Sleep hygiene with regular time in bed for at least 7.5-8 hours 3. PAP unit should stay lower then position of the head. 4. Advised patient to remove all remaining water from humidifier canister daily and make it dry after each usage. Refill canister with fresh distilled water before each usage. 5. Watching and losing weight. 6. Precautions related to driving. No driving if feel any sleepiness. 7. I will maintain prescription for PAP supplies including mask, tube, filters. 8. Follow up visit in 8 months or earlier if patient has any problems. Thank you very much for allowing me to participate in the management of your patient. Chirag Fuentes MD, PhD, FAASM. Diplomat of [employer], Sleep Medicine Board by [employer] Special Needs [facility] [place] Objective - Vital Signs Vital Signs: Vital Signs Temp 97.7 F 05/06/25 16:41 Pulse 55 L 05/06/25 16:41 Resp 16 05/06/25 16:41 BP 91/63 05/06/25 16:41 Pulse Ox 97 05/06/25 16:41 FiO2 Intake & Output 05/05/25 05/06/25 05/06/25 18:59 06:59 18:59 Weight 117.027 kg Home Medications: Home Medications Medication Instructions Recorded Confirmed Type Ergocalciferol [Vitamin D2 50,000 unit PO DIRECTED 01/16/16 05/21/24 History (DRISDOL)] Ezetimibe [Zetia] 10 mg PO DAILY 01/16/16 05/21/24 History Levothyroxine Sodium [Synthroid] 137 mcg PO DAILY 01/16/16 05/21/24 History Metoprolol Tartrate [Lopressor] 100 mg PO TID 01/16/16 05/21/24 History Rivaroxaban [Xarelto] 20 mg PO HS 01/16/16 05/21/24 History ramipriL [Altace] 5 mg PO DAILY 01/16/16 05/21/24 History Furosemide [Lasix] 40 mg PO DAILY 03/06/16 05/21/24 History Digoxin [Lanoxin] 125 mcg PO DAILY 09/11/23 05/21/24 History Pyridostigmine [Mestinon] 60 mg PO QID 09/11/23 05/21/24 History Unk Multi Vitamin 1 tab PO DAILY 09/11/23 05/21/24 History ursodioL [Ursodiol] 500 mg PO BID 09/11/23 05/21/24 History
== END ==
LOC: 3 N SLEEP 16:21
PROVIDERS: ATTEND Internal Medicine
DX: G47.33 Obstructive sleep apnea (adult) (pediatric) (principal); E66.9 Obesity, unspecified; I48.91 Unspecified atrial fibrillation; E03.9 Hypothyroidism, unspecified; E78.5 Hyperlipidemia, unspecified; Z87.19 Personal history of other diseases of the digestive system; Z86.69 Personal history of other diseases of the nervous system and sense organs
CPT/HCPCS: 99212